=== PATIENT | male | born 1960 | race Caucasian/White ===

== ENCOUNTER 2020-07-06 09:22 | Outpatient (CLI) | payer BC, SELFPAY ==
--- NOTE | ~2020-07-06 | CT_ITS ---
EXAMINATION: CT soft tissue neck w con EXAM DATE: 07/06/2020 10:07 INDICATION: R22.1 - Localized swelling, mass and lump, neck. TECHNIQUE: Spiral CT of the neck was performed following intravenous injection of 75 mL Omnipaque 350 . Axial, coronal and sagittal images were reviewed. The dose-length product (DLP) for this examinat ion was 521.35 mGy-cm. The exposure was tailored according to patient size (auto mA exposure control ), and iterative reconstruction (ASIR) was used as additional dose reduction technique. There is no prior study for comparison. FINDINGS: There is a externally placed marker overlying the right posterior cervical triangle. Deep t o this are scattered small lymph nodes which are likely reactive, largest measuring about 4 x 6 mm. T here are no pathologically enlarged cervical lymph nodes. There is a posterior midline sebaceous cyst at the C2 level. The thyroid gland is unremarkable. The submandibular and parotid glands are symmetric. The superi or mediastinum is unremarkable. The airway is unremarkable. Parapharyngeal and pre-glottic fat pl anes are preserved. The opacified vasculature is patent. Mild bilateral carotid arterial sclerosis without stenosis. Small right mastoid effusion, evidence of mild to moderate bilateral ethmoid and l eft maxillary sinus mucoperiosteal thickening. Some fluid in the left maxillary sinus. Lung apices ar e clear. Moderate to severe right neural foraminal stenosis at C2-3 and C4-5. IMPRESSION: 1. Small cervical lymph nodes. No suspicious findings. 2. Mild to moderate sinus mucoperiosteal opacity. Reviewed, dictated and finalized at location B. EROLE PREPARER
[2020-07-06 10:00] LABS: Estimated Glomerular Filt Rate > 60
== END 2020-07-06 09:23 | disposition home or self-care (01) ==
PROVIDERS: PCP Internal Medicine; Visit Provider Otolaryngology
DX: R22.1 Localized swelling, mass and lump, neck (principal); J39.2 Other diseases of pharynx
CPT/HCPCS: 70491; Q9967

== ENCOUNTER 2021-07-25 00:31 | Day surgery (SDC) | payer BC, SELFPAY ==
[2021-07-14 12:44] VITALS: BMI 26.8
--- NOTE | 2021-07-22 13:16 | PM.HPGS ---
History of Present Illness History of Present Illness Consent: Risks, benefits, and alternatives have been discussed and questions answered. Patient agrees to proceed with procedure. Chief complaint: hx of colon polyps Narrative: Malik Villarreal is a 61 year old male referred for colon cancer screening. He has a family history of colon cancer and has had polyps removed in the past Review of Systems Review of Systems: All systems reviewed & are unremarkable except as noted in HPI and below PMFSH Past Medical History Medical History CAD (coronary artery disease) Myocardial infarct Surgical History Surgical History History of colon resection Social History Social History Smoking status: Current every day smoker Tobacco type: cigarettes Second hand tobacco smoke exposure: No Alcohol intake: never Substance use: never Substance use type: does not use Living arrangements: alone Spiritual care concerns: No Meds Home Medications and Allergies Home Medications Medication Instructions Recorded Confirmed Type aspirin 81 mg tablet,delayed 81 mg PO DAILY 06/23/20 07/14/21 History release atorvastatin 80 mg tablet 80 mg PO DAILY 06/23/20 07/14/21 History ezetimibe 10 mg tablet 10 mg PO DAILY 06/23/20 07/14/21 History hydrocodone 7.5 mg-acetaminophen 1 tablet PO Q8H PRN 06/23/20 07/14/21 History 325 mg tablet metoprolol succinate 25 mg 25 mg PO DAILY 06/23/20 07/14/21 History tablet,extended release 24 hr Allergies Allergy/AdvReac Type Severity Reaction Status Date / Time No Known Allergies Allergy Mild Verified 07/25/21 09:09 Exam Resp: Auscultation: clear to auscultation bilaterally Cardio: Rate: regular rate Rhythm: regular rhythm GI: GI Palp: Yes Soft to palpation and No Tenderness to palpation present (GI) Assessment and Plan Assessment and plan (1) Colon cancer screening: Code(s): Z12.11 - Encounter for screening for malignant neoplasm of colon Status: Acute Assessment and Plan: Colonoscopy with possible biopsy or polypectomy or cautery or injection of substances.
[2021-07-25 09:11] VITALS: PULSE 107; RESP 18; TEMP 37.1; O2SAT 99
[2021-07-25] MEDS: LACTATED RINGERS 1,000 ML 150 ML IV CONT (09:25)
--- NOTE | 2021-07-25 09:27 | P.PNAN_ITS ---
Anes - Initial Pre Proc Eval Procedure: Operation Date: 07/25/21 10:30 Proposed Procedures p Screening Colonoscopy - Stephen Salas MD Date/Time: 07/25/21 09:27 Surgeon: Stephen Salas MD Pre Op Diagnosis: hx of colon polyps Patient Data Age: 61 Gender: M Height: 1.93 m Weight: 100.6 kg Last Vital Signs Temp 37.1 C 07/25/21 09:11 Pulse 107 H 07/25/21 09:11 Resp 18 07/25/21 09:11 Pulse Ox 99 07/25/21 09:11 Allergies Allergy/AdvReac Type Severity Reaction Status Date / Time No Known Allergies Allergy Mild Verified 07/25/21 09:09 Home Medications Medication Instructions Recorded Confirmed Type aspirin 81 mg tablet,delayed 81 mg PO DAILY 06/23/20 07/14/21 History release atorvastatin 80 mg tablet 80 mg PO DAILY 06/23/20 07/14/21 History ezetimibe 10 mg tablet 10 mg PO DAILY 06/23/20 07/14/21 History hydrocodone 7.5 mg-acetaminophen 1 tablet PO Q8H PRN 06/23/20 07/14/21 History 325 mg tablet metoprolol succinate 25 mg 25 mg PO DAILY 06/23/20 07/14/21 History tablet,extended release 24 hr Patient hx anesthesia problems: none Family hx anesthesia problems: none Results Review: All pre-operative results and documents have been reviewed as part of the pre-operative evaluation. [facility] Past Medical History Medical History (Updated 07/25/21 @ 09:28 by Vinicius Ruffin MD) CAD (coronary artery disease) Myocardial infarct Surgical History Surgical History (Updated 07/25/21 @ 09:28 by Vinicius Ruffin MD) History of colon resection Social History Social History Smoking status: Current every day smoker Tobacco type: cigarettes Second hand tobacco smoke exposure: No Alcohol intake: never Substance use: never Substance use type: does not use Living arrangements: alone Spiritual care concerns: No Anes - Eval Final PreProcedure Day of Procedure 07/25/21 09:27 Patient weight: overweight Heart: regular rate and rhythm Lungs: clear to auscultation Airway: Mallampati scale class II Neurological: alert and oriented Last oral intake: >/= 8 hours ASA classification: III Emergent: no Anesthetic plan: proceed Anesthesia type and monitoring: general GIVS and standard monitoring Results Review: All pre-operative results and documents have been reviewed as part of the pre-operative evaluation. Informed Consent: The patient's anesthetic plan and its attendant risks and benefits were discussed with the patient/family/POA. Questions were solicited and answers provided to the satisfaction of the patient/family/POA.
[2021-07-25] MEDS: SIMETHICONE ORAL SUSPENSION 20 MG/0.3 ML 30 ML BOTTLE 0.6 ML IRRIGATION (10:03)
[2021-07-25 10:12] VITALS: BP 106/76; PULSE 96; RESP 22; O2SAT 96
[2021-07-25 10:22] VITALS: BP 140/122; PULSE 89; RESP 22; O2SAT 98
[2021-07-25 10:32] VITALS: BP 145/89; PULSE 79; RESP 17; O2SAT 98
== END 2021-07-25 10:44 | disposition home or self-care (01) ==
PROVIDERS: PCP Internal Medicine; Visit Provider Internal Medicine Gastroenterology
PROC: 0DJD8ZZ Inspection of Lower Intestinal Tract, Via Natural or Artificial Opening Endoscopic (ICD-10-PCS; CPT 45378; principal; 2021-07-25 10:30)
DX: Z12.11 Encounter for screening for malignant neoplasm of colon (principal); K63.5 Polyp of colon; Z98.0 Intestinal bypass and anastomosis status; I25.10 Atherosclerotic heart disease of native coronary artery without angina pectoris; I25.2 Old myocardial infarction; F17.210 Nicotine dependence, cigarettes, uncomplicated
CPT/HCPCS: 45385; 88305; J2704; J7120

== ENCOUNTER → 2022-12-28 13:32 | Outpatient (CLI) | payer OTHER, SELFPAY ==
--- NOTE | ~2022-12-28 | CT_ITS ---
EXAMINATION:CT lung screening DATE: 12/28/2022 13:44 INDICATION: Personal history of tobacco dependence. Current smoker with 20 pack year history. TECHNIQUE: Computed tomography (CT) of the chest was performed without intravenous contrast. Automate d exposure control and iterative reconstruction technique were employed. The dose-length product (DLP ) was 186.28 mGy-cm. COMPARISON: Neck CT 07/06/2020 FINDINGS: There is mild emphysema. Calcified bilateral lung nodules and calcified right hilar lymph n odes are consistent with old granulomatous disease. There is a 6 mm nodule in left lower lobe. No ple ural effusion. There is mild mediastinal lymphadenopathy, likely reactive. The heart size is normal. There are coronary artery calcifications. No pericardial effusion. Calcifications in the spleen are c onsistent with old granulomatous disease. There are changes of cholecystectomy. There is mild thoraci c spondylosis. There is mild chronic anterior wedging of multiple thoracic vertebral bodies. IMPRESSION: 1. Lung-RADS category 3: Probably benign. Further evaluation is recommended with noncontrast low-dose chest CT in 6 months. Reviewed, dictated and finalized at location A. IMPRESSION: 1. Lung-RADS category 3: Probably benign. Further evaluation is recommended wit h noncontrast low-dose chest CT in 6 months.
== END ==
PROVIDERS: PCP Internal Medicine; Visit Provider Internal Medicine
DX: Z12.2 Encounter for screening for malignant neoplasm of respiratory organs (principal); Z87.891 Personal history of nicotine dependence; R91.8 Other nonspecific abnormal finding of lung field
CPT/HCPCS: 71271

== ENCOUNTER 2025-04-07 10:54 | Outpatient (CLI) | payer MEDICARE, SELFPAY ==
--- NOTE | 2025-04-07 10:23 | CY_PTH ---
PATIENT: Malik Villarreal LOC: ANHLAB #:[id number] AGE/SX: 64/M ROOM: RE04/07/[address]: Graham Kimball MD : 1960 BED: DIS: 04/07/2025 SPEC #: [id number] RECD: 04/07/25 11:47 STATUS: SOUMaggy REQ #: [id number] MOISÉS: 04/07/25 10:[address]: Graham Kimball DEPT: [facility] Cytology RECD BY: Nakita Lopez ENTERED: 04/07/25 11:49 SP TYPE: Cytology OT DR: Shaheen Denney, Tissues: A - Flow Procedures: Flow Cytometry
--- OUTSIDE RECORDS SUMMARY | 2025-04-07 10:30 | XMS_ITS | Encounter Summary ---
Author Organization [facility] Address [address] [place] [address] Care Team Providers Care Plant Cytologist Name Role Phone Shaheen Denney MD Primary Care Provider [phone] Reason for Referral * Laboratory Services (Routine) - Open Specialty Diagnoses / Procedures Referred By Contac t Referred To Contact Diagnoses Leukocytosis, unspecified type Procedures BCR/ABL1, QUANTITATIVE W/REFLEX Graham Kimball MD [address] [place] [id number] Phone: tel: fax: Referral ID Status Reason Start Date Expiration Date Visits Re quested Visits Authorized [id number] Open 04/07/2025 2026 1 1 Reason for Visit * Reason Comments Establish Care Encounter Details Date Type Department Care Team (Late st Contact Info) Description 04/07/2025 10:30 AM CDT Office Visit [facility] Oncology and Hematology - [place] [facility] [address] [place] [address] Graham Kimball MD [address] [place] [address] Leukocytosis, unspecified type (Primary Dx) Social History Tobacco Use Types Packs/Day Years Used Date Smoking Tobacco: Every Day Cigarettes 1.5 45 Started: 04/07/1980 Smokeless Tobacco: Never Alcohol Use Standard Drinks/Week Comments Not Currently 0 (1 standard drink = 0.6 oz pur e alcohol) Sex and Gender Information Value Date Recorded Sex Assigned at Not on file Legal Sex Male 4:02 PM CDT Gender Identity Not on file Sexual Orientation Not on file documented as of this encounter Last Filed Vital Signs Vital Sign Reading Time Taken Comments Blood Pressure 154/99 04/07/2025 10:14 AM CDT Pulse 107 04/07/2025 10:11 AM CDT Temperature 37.6 C (99.7 F) 04/07/2025 10:11 AM CDT Respiratory Rate 15 04/07/2025 10:1 1 AM CDT Oxygen Saturation 93% 04/07/2025 10: 11 AM CDT Inhaled Oxygen Concentration - - Weight 101.1 kg (222 lb 12.8 oz) 2024 10:11 AM CDT Height 193 cm (6' 4) 04/07/2025 10:11 AM CDT Body Mass Index 27.12 04/07/2025 10:11 AM CDT documented in this encounter Progress Notes * Graham Kimball MD - 04/07/2025 10:14 AM CDT Hematology-oncology consult Note Requesting Physician Shaheen Denney MD Primary Care Physician Shaheen Denney MD Problem list There is no problem list on file for this patient. Previous TREATMENT ? Measurable Disease ? Reason for Visit Malik Villarreal is a 64 y.o. male who was referred for consultation for leukocytosis. History of present illness This is a pleasant 64-year-old male with history of hyperlipidemia and smoking 1-1/2 pack/day for 45 years duration was been dealing with the lower back pain, knee pain, elbow pain and right shoulder pain. Patient was diagnosed with spinal stenosis and has been getting [place] for pain control. He denies any night sweats fevers chills and weight loss. Denies any new lumps bumps and lymphadenopathy. Patient informed me that for last 1 year his white blood cell has been slowly going up. His labs from October 31 showed WBC count of 16.6. He denies any other complaints. Past Medical History Past Medical History: Diagnosis Date Heart disease Hyperlipidemia Spinal stenosis and degenerative disc disease Surgical History Past Surgical History: Procedure Laterality Date HX CHOLECYSTECTOMY HX COLECTOMY Medications Current Outpatient Medications Medication Sig Dispense Refill atorvastatin (LIPITOR) 80 mg tablet Take 80 mg by mouth daily. HYDROcodone-acetaminophen (NORCO) 7.5-325 mg Tablet Take 1 Tablet by mouth 3 times daily. aspirin (ECOTRIN EC) 81 mg Tablet, Delayed Release (E.C.) Take 81 mg by mouth daily. No current facility-administered medications for this visit. Allergies No Known Allergies Immunizations: There is no immunization history on file for this patient. Family History Family History Problem Relation Name Age of Onset Heart Disease Father Diabetes Father Liver Cancer Mother Cancer - Other Sister No Known Problems Child No Known Problems Child Social History Social History Tobacco Use Smoking status: Every Day Current packs/day: 1.50 Average packs/day: 1.5 packs/day for 45.0 years (67.5 ttl pk-yrs) Types: Cigarettes Start date: 04/07/1980 Smokeless tobacco: Never Substance Use Topics Alcohol use: Not Currently Review of Systems Constitutional: Patient did not mention fever; no night sweats; no anorexia; no weight loss; no fatique NEENT: Patient did not mention headache; no change in vision; no change in hearing; no sore throat;no dysphagia Respiratory: Patient did not mention shortness of breath; no pleuritic chest pain; no cough; no hemoptysis Cardiac: Patient did not mention cardiac-like chest pain; no palpitations; no orthopnea; no PND; noDOE GI: Patient did not mention abdominal pain; no nausea; no vomiting; no diarrhea; no hematochezia; no melena : Patient did not mention dysuria; no frequency; no hesitancy; no hematuria SALES SUPPORT CONSULTANT: Musculosketetal: Complain of lower back pain, knee pain, elbow pain and right shoulder pain Skin: Patient did not mention pruritis; no rash; no petechiae; no ecchymoses Endocrine: Patient did not mention polydipsia; no polyuria; no unusual weight gain Neuro: Patient did not mention headache; no change in vision; no sensory changes; no muscle weakness; no confusion; no seizures Psych: Patient did not mention anxiety; no depression; Physical Exam Vitals: As per nursing note Constitutional: Well developed, well nourished, no acute distress, non-toxic appearance Teeth and gum. No signs of infection or swelling. Eyes: PERRL, conjunctiva normal HEENT: Atraumatic, external ears normal, nose normal, oropharynx moist, no pharyngeal exudates. no sinus tenderness Neck- normal range of motion, no tenderness, supple Respiratory: No respiratory distress, normal breath sounds, no rales, no wheezing Cardiovascular: Normal rate, normal rhythm, no murmurs, no gallops, no rubs GI: Soft, nondistended, normal bowel sounds, nontender, no splenomegaly, no hepatomegaly, no mass, no rebound, no guarding : No costovertebral angle tenderness Musculoskeletal: No edema, no tenderness, no deformities. Back- no tenderness Integument: Well hydrated, no rash, Digits and nails inspection normal Lymphatic: No lymphadenopathy noted Neurologic: Alert & oriented x 3, CN 2-12 normal, normal motor function, normal sensory function, no focal deficits noted Psychiatric: Speech and behavior appropriate ? labs No results found for this or any previous visit (from the past 24 hours). Labs from October 31, 2024 showed WBC 16.6 hemoglobin 16.3 MCV 93.4 platelet 393,000 neutrophils 62% lymphocyte 29% Pathology ? Imaging & Other Studies Performance Status? Assessment / Plan: ? Leukocytosis. Patient is a pleasant 64-year-old male with history of hyperlipidemia and smoking 1-1/2 pack/day for more than 45 years duration referred to me for leukocytosis which is getting worse for the last 1 year duration. He has been complaining of musculoskeletal discomfort including lower back pain, knee pain, elbow pain and right shoulder pain. He is taking [place] for the back pain which he attributed to the degenerative disc disease and spinal stenosis. On my examination there is no evidence of lymphadenopathy and hepatosplenomegaly. He denies any B symptoms including nightsweats fever chills and weight loss. I informed him that most likely he has leukocytosis is reactive secondary to musculoskeletal discomfort and smoking. We will order the workup that will include CBC with differential, CMP, C-reactive protein, sedimentation rate, flow cytometric analysis for leukemia and BCR-ABL translocation. I will discuss findings with the patient next couple of weeks. I haveanswered all the questions to patient satisfaction. Hyperlipidemia. Patient is on Lipitor. Smoking cessation. I recommended smoking cessation. He had last CT scan chest for the lung cancer screening 2 years ago and was unremarkable. He will continue to follow with the primary care physician for further management. Thank you very much for allowing me to participate in Malik Villarreal's evaluation and management. Please feel free to contact if I can be of any further assistance in your patient???s care requiring hematology or oncology evaluation. Sincerely, ? ? Graham Kimball M.D. cell TOBACCO COUNSELING He was counseled to discontinue tobacco/nicotine use. Graham Kimball MD ,04/07/2025 10:41 AM ? Total time spent 60 minutes, two third of the total time spent counseling patient [id number]. CC:?Shaheen Denney MD documented in this encounter Plan of Treatment Upcoming Encounters Date Type Department Care Team (Late st Contact Info) Description 04/21/2025 4:30 PM CDT Telephone Check Up [facility] Oncology and Hematology - [place] [address] [facility] [address] [place] [address] Graham Kimball MD [address] [facility] [address] [place] [address] Scheduled Orders Name Type Priority Associated Diagnoses Orde r Schedule CBC WITH DIFFERENTIAL Lab Stat Leukocytosis, unspecified type Expected: 04/07/2025, Expires: 04/07/2026 COMPREHENSIVE METABOLIC PANEL Lab Stat Leukocytosis, unspecified type Expected: 04/07/2025, Expires: 04/07/2026 C-REACTIVE PROTEIN Lab Routine Leukocytosis, unspecified type Expected: 04/07/2025, Expires: 04/07/2026 FLOW CYTOMETRY PANEL Lab Routine Leukocytosis, unspecified type Expected: 04/07/2025, Expires: 04/07/2026 SEDIMENTATION RATE Lab Routine Leukocytosis, unspecified type Expected: 04/07/2025, Expires: 04/07/2026 BCR/ABL1, QUANTITATIVE W/REFLEX Lab Routine Leukocytosis, unspecified type Expected: 04/07/2025, Expires: 04/07/2026 documented as of this encounter Visit Diagnoses Diagnosis Leukocytosis, unspecified type- Primary documented in this encounter Care Teams Plant Cytologist Relationship Specialty Start Date End Date Shaheen Denney MD [address] [facility] [address] [place] [address] PCP - General Internal Medicine 12/03/24 documented as of this encounter
[2025-04-07 11:17] LABS: Hematocrit 45.5 % (42.0-52.0); Hemoglobin 15.4 g/dL (14.0-18.0); Immature Granulocyte Percent A 0.5 % (0-0.5); Lymphocytes Absolute Auto 3.95 K/mm3 (0.9-3.2); Mean Corpuscular HGB Conc 33.8 g/dl (32-36); Mean Corpuscular Hemoglobin 31.0 pg (26-34); Mean Corpuscular Volume 91.7 fl (80-100); Nucleated Red Blood Cells Absolute Auto 0.000 K/mm3 (0.0-0.012); Nucleated Red Blood Cells Perc 0.0 % (0.0-0.2); Platelet Count Result 326 k/mm3 (150-375); Red Blood Count 4.96 M/mm3 (4.6-6.20); White Blood Count 17.6 K/mm3 (4.5-10.0)
[2025-04-07 12:02] LABS: Alanine Aminotransferase 29 U/L (6-50); Albumin Level 4.6 g/dL (3.5-5.1); Alkaline Phosphatase 84 U/L (38-126); Anion Gap 12 mmol/L (4-12); Aspartate Amino Transferase 34 U/L (17-59); Bilirubin,Total 0.6 mg/dL (0.2-1.3); Blood Urea Nitrogen 15 mg/dL (9-20); CRP 1.1 mg/dL (<1.0); Calcium 9.3 mg/dL (8.4-10.2); Carbon Dioxide 21 mmol/L (22-30); Chloride 106 mmol/L (98-107); Estimated Glomerular Filt Rate > 60; Glucose 100 mg/dL (65-110); Potassium 3.9 mmol/L (3.4-5.0); Sodium 139 mmol/L (137-145); Total Protein 8.2 g/dL (6.3-8.2)
--- OUTSIDE RECORDS SUMMARY | 2025-04-07 12:54 | XMS_ITS | Data Portability ---
Author Organization [facility], Main Office Address [address] [place] [address] Assessment No assessment recorded. Plan of Treatment Reminders Order Date Submit Date Provider Last Modified By Organization Details Last Modified Time Details Appointments None recorded. Lab HbA1c (hemoglobin A1c), blood 2024 025 [employer] [facility], [address], [address], [place], [address], 5 20:52:42 CBC w/ auto diff 2024 025 [employer] [facility], [address], [place], [address], 5 20:52:39 CMP, serum or plasma 2024 025 [employer] [facility], [address], [place], [address], 5 20:52:37 lipid panel, serum 2024 025 [employer] [facility], [address], [place], [address], 5 20:52:36 TSH, serum or plasma 2024 025 [employer] [facility], [address], [place], [address], 5 20:52:41 T4, free, serum 2024 025 [employer] [facility], [address], [place], [address], 5 20:52:40 drug screen, urine 2024 025 [facility], [address], [address], [place], [address], 5 20:52:43 lipid panel, serum 2023 024 [email or web address] [facility], [address], [place], [place], [address], 4 10:03:29 CMP, serum or plasma 2023 024 [email or web address] [facility], [address], [place], [place], [address], 4 10:03:30 TSH, serum or plasma 2023 024 [id number] [facility], [address], [place], [place], [address], 4 10:03:30 T4, free, serum 2023 024 [email or web address] [facility], [address], [address] [place], [place], [address], 4 10:03:30 CBC w/ auto diff 2023 024 [email or web address] [facility], [address], [address], [place], [address], 4 10:03:30 CMP, serum or plasma 2023 024 [facility], [address], [address], 4 15:09:40 lipid panel, serum 2023 024 [facility], [address], [address], 4 15:09:39 TSH, serum or plasma 2023 024 [facility], [address], [address], 4 15:09:42 T4, free, serum 2023 024 [facility], [address] [facility] [address], [place], [address], 4 15:09:41 PSA, serum or plasma 2023 024 [facility], [address], [address], 4 15:09:42 CBC w/ auto diff 2023 024 [facility], [address], [address], 4 15:09:41 CMP, serum or plasma 2022 023 [employer] [facility], [address], [address], 3 16:46:45 lipid panel, serum 2022 023 [employer] [facility], [address], [address], 3 16:46:45 CBC w/ auto diff 2022 023 [employer] [facility], [address], [address], 3 16:46:45 PSA, serum or plasma 2022 023 [employer] [facility], [address], [address], 3 04:26:25 CMP, serum or plasma 2022 023 [facility] [facility], [address], [address], 3 04:26:22 CBC w/ auto diff 2022 023 [facility] [facility], [address] [address], [place], [address], 3 04:26:22 lipid panel, serum 2022 023 [employer] [facility], [address], [address], 3 04:26:20 T4, free, serum 2022 023 [employer] [facility], [address], [address], 3 04:26:23 TSH, serum or plasma 2022 023 [employer] [facility], [address], [address], 3 04:26:24 drug screen, urine 2022 023 [employer] [facility], [address], [place], [address], 3 20:57:19 Referral None recorded. Procedures None recorded. Surgeries None recorded. Imaging electrocard iogram 2023 024 [email or web address] [facility], [facility] , [place], [address], 4 10:51:33 Medication Orders None recorded. Patient Targets Encounter Date Encounter Id Patient Goals Patient Target Last Modified By Organization Details Last Modified Time 05/27/2024 [id number] Coronary artery disease, essential hypertension, hyperlipidemia, chronic pain syndrome clinically stable. Check blood work consisting of CBC, CMP, lipid, thyroid and low-dose CT scan of the chest. Otherwise has been doing fine. Will continue with current Rx and follow-up in six months Additional Orders - Directives - Recommendations 1. LDCT Follow Up: 6 Months Approximate Date: 11/23/2024 Portions of the record may have been created with voice recognition software. Occasional wrong-word or s ound-a-like substitutions may have occurred due to the inherent limitations of voice recognition software. Read the chart carefully and recognize, using context, where substitutions have occurred. Created: Ben Denney M.D. 05.27.2024 03:28 PM [email or web address] Not available 05/27/2024 16:28:10 Patient Instructions Encounter Date Encounter Id Patient Instructions Last Modified By Organization Details Last Modified Time 11/21/2022 [id number] risk assessment* [email or web address] Not availabl e 11/21/2022 14:49:26 INFLUENZA VACCIN E Patient will get at local pharmacy/health department TD/TDAP Patient will get at local pharmacy/health department PNEUMONIA VACCINE Recommended at age 65 SHINGLES Patient will get at local pharmacy/health department PSA recommended COLORECTAL SCREENING No screening necessary patient is up to date DEPRESSION SCREENING Negative BMI Appropriate NUTRITION Heart Healthy Diet PHYSICAL ACTIVITY Need more exercise/physical activity ALCOHOL USE No alcohol use TOBACCO USE current tobacco use If 50 or above, recommend lung cancer screening with low dose CT scan of the chest LUNG CANCER SCREENING Recommendation for Lung Cancer Screening with LDCT SEXUALLY ACTIVE HEPATITIS C SCREENING Not indicated GLUCOSE SCREENING recommended LIPID SCREENING recommended Not available 11/21/2022 14:37:56 Wellness evaluat ion risk assessment stable. Follow-up for coronary artery disease, hypertension, hyperlipidemia and chronic pain syndrome. Will check blood work consisting of CBC, CMP, lipid, thyroid, PSA. Need a low-dose CT scan of the chest. Follow-up in six months Low-dose CT scan of chest Not available 11/21/2022 14:49:08 05/22/2023 [id number] Follow-up deal ry artery disease -hypertension-hyper lipidemia. Clinically stable. He did have a markedly elevated cholesterol last visit of over 300. Apparently at stop taking his atorvastatin. Has restarted this back up. No interval complaints of any change in frequency, duration or intensity of any type of anginal symptomatology. No history of any type of shortness of breath orthopnea PND or any other cardiopulmonary symptoms. Will recheck lipid and CMP panel. Continue on current Rx follow-up in six months.Standard immunizations of RSV, COVID, influenza and shingles as recommended. Portions of the record may have been created with voice recognition software. Occasional wrong-word or s ound-a-like substitutions may have occurred due to the inherent limitations of voice recognition software. Read the chart carefully and recognize, using context, where substitutions have occurred. [email or web address] Not available 05/22/2023 14:38:32 11/27/2023 [id number] dementia rating scale-2* [email or web address] Not available 11/27/2023 17:13:49 alcohol misuse* Not available 11/27/2023 17:13:50 depression screening* [email or web address] Not available 11/27/2023 17:13:50 multi-dimensiona l health assessment questionnaire* Not available 11/27/2023 17:13:50 Personalized Hea lt Plan and Screening Recommendations Advance Directives - Do you have one? No Advance Directives - Do we have your advance directive on file in your health record? Primary Prevention/Interven tion (prevents or decreases the chance of common diseases from occurring) Smoking Risk: Smoker Continue to consider stopping smoking and call if we can assist you Alcohol Misuse Screening: Negative Weight: Appropriate Physical activity: Need more exercise/physical activity Nutrition: Average Eat heart healthy diet Fall Risk (screened today): Low I have no recommendations Vaccines Pneumococcal: Recommended today Influenza: Your next one in the fall of this year Chronic Disease Risks Stroke: Intermediate Risk Active diagnosis, Continue current treatment plan Heart Attack: Intermediate Risk Active diagnosis, Continue current treatment plan Clogging of the Arteries: Intermediate Risk Active diagnosis, Continue current treatment plan Diabetes: Low Risk I have no recommendations Secondary Prevention/Interven tion (detects treatable diseases before they may cause symptoms, disability, or ) Prostate Cancer Screening: recommended Colon Cancer Screening: Colonoscopy due 2026 Date Screening Last Performed: _2021____ Eye Disease Screening: goes every 2-3 yrs Dementia Risk: Low I have no recommendations Depression Screening: Negative I have no recommendations Not available 11/27/2023 16:56:53 Welcome to Medic are visit clinically stable. No new complaints. Follow-up for coronary artery disease, hypertension, hyperlipidemia all clinically stable. Was given a Prevnar 20 shot today. Will need blood work consisting of CBC, CMP, lipid, thyroid and PSA. Will also set up for a ultrasound of the abdominal aorta. Continue on current Rx follow-up in six months. Ultrasound of abdominal aorta for screening for abdominal aortic aneurysm for welcome to Medicare visit. Next Appointment: 6 Months Approximate Date: 05/25/2024 Portions of the record may have been created with voice recognition software. Occasional wrong-word or s ound-a-like substitutions may have occurred due to the inherent limitations of voice recognition software. Read the chart carefully and recognize, using context, where substitutions have occurred. [email or web address] Not available 11/27/2023 17:13:02 10/28/2024 [id number] Follow-up edal ry artery disease, essential hypertension, hyperlipidemia, hyperglycemia and chronic pain syndrome all clinically stable. No interval complaints of any new problems with regards to these. Is clinically stable otherwise. Will check blood work consisting of a CBC, CMP, lipid and thyroid. Directed patient to get these done after December 16 or so where he had testing done approximately one year ago. Has had an elevated white count which is grafted. Etiology which obscure. Will need to consider possible hematological referral. Will continue on current Rx and follow-up in six months Follow Up: 4 Months Approximate Date: 02/25/2025 Portions of record are template driven. When necessary additional context will be provided. Additionally some portions have been created with voice recognition software. Occasional wrong-word or s ound-a-like substitutions may have occurred due to the inherent limitations of voice recognition software. Read the chart carefully and recognize, using context, where substitutions may have occurred. Created: Ben Denney M.D. 10.28.2024 01:54 PM [email or web address] Not available 10/28/2024 14:54:22 Reason for Referral None Reported. Results Created Date Observation Date Name Description Value Unit Range Abnormal Flag Note LastModifiedBy Organization Detail LastModifiedTime 11/25/19 23 11/25/2022 DRUG MONIT OR, BASE PANEL , SCREE N, URINE benzodiazepi kirill NEGATI VE NG/mL <100 See Note A See Note A Not Available [address], [place], [address], 11/25/2022 20:57:11/25/1911/25/2022 DRUG MONIT OR, BASE PANEL , SCREE N, URINE cocaine metabolite NEGATI VE NG/mL <150 See Note A See Note A Not Available [address], [place], [address], 11/25/2022 20:57:11/25/1911/25/2022 DRUG MONIT OR, BASE PANEL , SCREE N, URINE opiates POSITI VE NG/mL <100 abnormal See Note A See Note A Not Available [address], [place], [address], 11/25/2022 20:57:11/25/19 23 11/25/2022 DRUG MONIT OR, BASE PANEL , SCREE N, URINE oxycodone NEGATI VE NG/mL <100 See Note A See Note A Not Available [address], [place], [address], 11/25/2022 20:57:11/25/1911/25/2022 DRUG MONIT OR, BASE PANEL , SCREE N, URINE creatinine 12.4 mg/dL > or = 20.0 low Not Available [address], [place], [address], 11/25/2022 20:57:11/25/1911/25/2022 DRUG MONIT OR, BASE PANEL , SCREE N, URINE specific gravity 1.005 > or = 1.003 Not Available [address], [place], [address], 11/25/2022 20:57:11/25/1911/25/2022 DRUG MONIT OR, BASE PANEL , SCREE N, URINE pH 6.3 4.5-9. 0 Not Available [address], [place], [address], 11/25/2022 20:57:19 11/25/19 23 11/25/2022 DRUG MONIT OR, BASE PANEL , SCREE N, URINE oxidant NEGATI VE mcg/m L <200 Not Available [address] , [place], [address], 11/25/2022 20:57:19 11/25/19 23 11/25/2022 DRUG MONIT ORING TEMPL ATE notes and comments This drug testi ng is for medic al treat ment only. Shahla sis was perfo rmed as non-f orens ic testi ng and these resul ts shoul d be used only by [facility] provi ders to rende r diagn osis or treat ment, or to monit or progr ess of medic al condi tions . Note A: The resul ts are presu mptiv e; based only on lilibeth orona ds, and they have not been confi rmed by a defin itive metho d. [facility] Pro[facility] ders needi ng Inter preta tion delbert tance , pleas e conta ct us at 1.877 .40.R XTOX (1.87 [phone] ) M-F, 8am to 10pm EST Not Available [address] , [place], [address], 11/25/2022 20:57:20 11/28/19 23 11/28/2022 LIPID PANEL , STAND SUNSHINE cholesterol, total 330 mg/dL <200 high Not Available [facility] [address], [place], [address], 11/28/2022 04:26:20 11/28/19 23 11/28/2022 LIPID PANEL , STAND SUNSHINE HDL cholesterol 38 mg/dL > or = 40 low Not Available [facility] [address] [address] [place], [address], 11/28/2022 04:26:20 11/28/19 23 11/28/2022 LIPID PANEL , STAND SUNSHINE triglyceride s 494 mg/dL <150 high If a non-f astin g speci men was colle cted, consi edgar repea t trigl yceri de testi ng on a fasti ng speci men if clini vale indic ated. Ramses walker et al. J. of Clin. Lipid ol. 2015; 9:129 -169. Not Available [employer] [address], [address], 11/28/2022 04:26:20 11/28/19 23 11/28/2022 LIPID PANEL , STAND SUNSHINE LDL-choleste rol mg/dL _(ara c) LDL lian stero l not calcu lated . Trigl yceri de level s great er than 400 mg/dL inval idate calcu lated LDL resul ts. Refer ence range : <100 Irving able range <100 mg/dL for prima ry preve ntion ; <70 mg/dL for patie nts with CHD or diabe tic patie nts with > or = 2 CHD risk facto rs. LDL-C is now calcu lated using the Francine n-Hop kins calcu latio n, which is a valid ated novel metho d provi ding veronika r accur acy than the Fried camden equat ion in the estim ation of LDL-C . Francine barfield SS et al. CRISTINA. 2013; 310(1 9): 2061- 2068 (http ://ed ucati on.Qu jasnoNONO. com/f aq/FA Q164) Not Available [facility] [address], [address], 11/28/2022 04:26:20 11/28/1911/28/2022 LIPID PANEL , STAND SUNSHINE chol/HDLC ratio 8.7 (calc ) <5.0 high Not Available [facility] [address], [address], 11/28/2022 04:26:20 11/28/19 23 11/28/2022 LIPID PANEL , STAND SUNSHINE non HDL cholesterol 292 mg/dL _(ara c) <130 high Non-H DL level > or = 220 is very high and may indic ate nusrat ic famil ial hyper lian stero lemia (FH). Clini ara asses sment and measu remen t of blood lipid level s shoul d be consi dered for all first -degr ee relat tu of patie nts with an FH diagn osis. For patie nts with diabe [place] plus 1 major ASCVD risk facto r, treat ing to a non-H DL-C goal of <100 mg/dL (LDL- C of <70 mg/dL ) is consi dered a thera peuti c optio n. Not Available [facility] [address] [address] [place], [address], 11/28/2022 04:26:20 11/28/19 23 11/28/2022 COMPR EHENS TONO METAB OLIC PANEL glucose 123 mg/dL 65-99 high Fasti ng refer ence inter indira For someo ne witho ut known diabe [place], a gluco se value betwe en 100 and 125 mg/dL is consi stent with predi abete s and seymour d be confi rmed with a follo w-up test. Not Available [facility] [address] [address] [place], [address], 11/28/2022 04:26:21 11/28/19 23 11/28/2022 COMPR EHENS TONO METAB OLIC PANEL urea nitrogen (BUN) 14 mg/dL 7-25 normal Not Available [facility] [address] [address] [place], [address], 11/28/2022 04:26:21 11/28/19 23 11/28/2022 COMPR EHENS TONO METAB OLIC PANEL creatinine 1.08 mg/dL 0.70-1 .35 normal Not Available [facility] [address] [address] [place], [address], 11/28/2022 04:26:21 11/28/19 23 11/28/2022 COMPR EHENS TONO METAB OLIC PANEL eGFR 77 mL/mi n/1.7 3m2 > or = 60 normal The eGFR is based on the CKD-E PI 2020 equat ion. To calcu late the new eGFR from a previ ous Creat inine or Cysta joaquina giles t, go to https ://tressa hayden.clark williamson/dimitri krause s/ kdoqi /gfr% 5Fcal culat or Not Available [address] [address] [place], [address], 11/28/2022 04:26:21 11/28/19 23 11/28/2022 COMPR EHENS TONO METAB OLIC PANEL BUN/creatini ne ratio NOT APPLIC ABLE (calc ) 6-22 Not Available [address], [address], 11/28/2022 04:26:21 11/28/19 23 11/28/2022 COMPR EHENS TONO METAB OLIC PANEL sodium 141 mmol/ L 135-14 6 normal Not Available [address] [address] [place], [address], 11/28/2022 04:26:21 11/28/19 23 11/28/2022 COMPR EHENS TONO METAB OLIC PANEL potassium 4.9 mmol/ L 3.5-5. 3 normal Not Available [address] [address] [place], [address], 11/28/2022 04:26:21 11/28/19 23 11/28/2022 COMPR EHENS TONO METAB OLIC PANEL chloride 107 mmol/ L 98-110 normal Not Available [facility] [address] [address] [place], [address], 11/28/2022 04:26:21 11/28/19 23 11/28/2022 COMPR EHENS TONO METAB OLIC PANEL carbon dioxide 25 mmol/ L 20-32 normal Not Available [address] [address] [place], [address], 11/28/2022 04:26:21 11/28/19 23 11/28/2022 COMPR EHENS TONO METAB OLIC PANEL calcium 10.4 mg/dL 8.6-10 .3 high Not Available [address], [address], 11/28/2022 04:26:21 11/28/19 23 11/28/2022 COMPR EHENS TONO METAB OLIC PANEL protein, total 7.8 g/dL 6.1-8. 1 normal Not Available [address], [address], 11/28/2022 04:26:21 11/28/19 23 11/28/2022 COMPR EHENS TONO METAB OLIC PANEL albumin 4.7 g/dL 3.6-5. 1 normal Not Available [address], [address], 11/28/2022 04:26:21 11/28/19 23 11/28/2022 COMPR EHENS TONO METAB OLIC PANEL globulin 3.1 g/dL_ (calc ) 1.9-3. 7 normal Not Available [address], [address], 11/28/2022 04:26:21 11/28/19 23 11/28/2022 COMPR EHENS TONO METAB OLIC PANEL albumin/glob ulin ratio 1.5 (calc ) 1.0-2. 5 normal Not Available [address], [address], 11/28/2022 04:26:21 11/28/19 23 11/28/2022 COMPR EHENS TONO METAB OLIC PANEL bilirubin, total 0.4 mg/dL 0.2-1. 2 normal Not Available [address], [address], 11/28/2022 04:26:21 11/28/19 23 11/28/2022 COMPR EHENS TONO METAB OLIC PANEL alkaline phosphatase 81 U/L 35-144 normal Not Available [address], [address], 11/28/2022 04:26:21 11/28/19 23 11/28/2022 COMPR EHENS TONO METAB OLIC PANEL AST 13 U/L 10-35 normal Not Available [address], [address], 11/28/2022 04:26:21 11/28/19 23 11/28/2022 COMPR EHENS TONO METAB OLIC PANEL ALT 11 U/L 9-46 normal Not Available [address], [address], 11/28/2022 04:26:21 11/28/19 23 11/28/2022 CBC (INCL UDES DIFF/ PLT) white blood cell count 12.7 thous and/u L 3.8-10 .8 high Not Available [address], [address], 11/28/2022 04:26:22 11/28/19 23 11/28/2022 CBC (INCL UDES DIFF/ PLT) red blood cell count 5.61 adwoa on/uL 4.20-5 .80 normal Not Available [address], [address], 11/28/2022 04:26:22 11/28/19 23 11/28/2022 CBC (INCL UDES DIFF/ PLT) hemoglobin 17.1 g/dL 13.2-1 7.1 normal Not Available [address], [address], 11/28/2022 04:26:22 11/28/19 23 11/28/2022 CBC (INCL UDES DIFF/ PLT) hematocrit 51.6 % 38.5-5 0.0 high Not Available [address], [address], 11/28/2022 04:26:22 11/28/19 23 11/28/2022 CBC (INCL UDES DIFF/ PLT) MCV 92.0 fL 80.0-1 00.0 normal Not Available [address], [address], 11/28/2022 04:26:22 11/28/19 23 11/28/2022 CBC (INCL UDES DIFF/ PLT) MCH 30.5 pg 27.0-3 3.0 normal Not Available [facility] [address], [address], 11/28/2022 04:26:22 11/28/19 23 11/28/2022 CBC (INCL UDES DIFF/ PLT) MCHC 33.1 g/dL 32.0-3 6.0 normal Not Available [address], [address], 11/28/2022 04:26:22 11/28/19 23 11/28/2022 CBC (INCL UDES DIFF/ PLT) RDW 13.2 % 11.0-1 5.0 normal Not Available [address], [address], 11/28/2022 04:26:22 11/28/19 23 11/28/2022 CBC (INCL UDES DIFF/ PLT) platelet count 406 thous and/u L 140-40 0 high Not Available [address], [address], 11/28/2022 04:26:22 11/28/19 23 11/28/2022 CBC (INCL UDES DIFF/ PLT) MPV 9.2 fL 7.5-12 .5 normal Not Available [address], [address], 11/28/2022 04:26:22 11/28/19 23 11/28/2022 CBC (INCL UDES DIFF/ PLT) absolute neutrophils 8420 cells /uL 1500-7 800 high Not Available [address], [address], 11/28/2022 04:26:22 11/28/19 23 11/28/2022 CBC (INCL UDES DIFF/ PLT) absolute lymphocytes 3353 cells /uL 850-39 00 normal Not Available [facility] [address], [address], 11/28/2022 04:26:22 11/28/19 23 11/28/2022 CBC (INCL UDES DIFF/ PLT) absolute monocytes 737 cells /uL 200-95 0 normal Not Available [facility] [address], [address], 11/28/2022 04:26:22 11/28/19 23 11/28/2022 CBC (INCL UDES DIFF/ PLT) absolute eosinophils 165 cells /uL 15-500 normal Not Available [address], [address], 11/28/2022 04:26:22 11/28/19 23 11/28/2022 CBC (INCL UDES DIFF/ PLT) absolute basophils 25 cells /uL 0-200 normal Not Available [facility] [address], [address], 11/28/2022 04:26:22 11/28/19 23 11/28/2022 CBC (INCL UDES DIFF/ PLT) neutrophils 66.3 % normal Not Available [facility] [address], [address], 11/28/2022 04:26:22 11/28/19 23 11/28/2022 CBC (INCL UDES DIFF/ PLT) lymphocytes 26.4 % normal Not Available [facility] [address], [address], 11/28/2022 04:26:22 11/28/19 23 11/28/2022 CBC (INCL UDES DIFF/ PLT) monocytes 5.8 % normal Not Available [address], [address], 11/28/2022 04:26:22 11/28/19 23 11/28/2022 CBC (INCL UDES DIFF/ PLT) eosinophils 1.3 % normal Not Available [address], [address], 11/28/2022 04:26:22 11/28/19 23 11/28/2022 CBC (INCL UDES DIFF/ PLT) basophils 0.2 % normal Not Available [address], [address], 11/28/2022 04:26:22 11/28/19 23 11/28/2022 T4, FREE T4, free 1.2 NG/dL 0.8-1. 8 normal Not Available [address], [address], 11/28/2022 04:26:23 11/28/19 23 11/28/2022 TSH TSH 0.48 mIU/L 0.40-4 .50 normal Not Available [address], [address], 11/28/2022 04:26:24 11/28/1911/28/2022 PSA, TOTAL PSA, total 0.30 NG/mL < or = 4.00 normal The total PSA value from this assay syste m is stand ardiz ed again st the WHO stand sunshine. The test resul t will be appro ximat brandon 20% lower when pritesh red to the equim olar- stand ardiz ed total PSA (Salazar man Coult er). Pritesh rison of seria l PSA resul ts shoul d be inter prete d with this fact in mind. This test was perfo rmed using the [employer] ns chemi lumin escen t metho d. Value s obtai bridget from diffe rent assay metho ds canno t be used inter pena eably . PSA level s, regar dless of value , shoul d not be inter prete d as absol [place] evide nce of the prese nce or absen ce of disea se. Not Available [facility] [address] [address] [place], [address], 11/28/2022 04:26:25 01/11/20 23 01/11/2023 HEMOG LOBIN A1C hemoglobin A1C 5.2 %_of_ total _HGB <5.7 normal For the purpo se of scree jie for the prese nce of diabe [place]: <5.7% Consi stent with the absen ce of diabe [place] 5.7-6 .4% Consi stent with incre ased risk for diabe [place] (pred iabet es) > or =6.5% Consi stent with diabe [place] This assay resul t is consi stent with a decre ased risk of diabe [place]. Curre ntly, no conse nsus exist s giovanna thomas use of hemog lobin A1c for diagn osis of diabe [place] in child juaquin. Accor ding to Ameri can Di[place] Assoc iatio n (ADA) guide lines , hemog lobin A1c <7.0% repre sents optim al contr ol in non-p regna nt diabe tic patie nts. Diffe rent metri cs may apply to speci fic patie nt popul ation s. Stand ards of Medic al Care in Diabe [place](A DA). Not Available [facility] [address] , [place], [address], 01/11/2023 01:44:46 12/19/19 24 12/21/2023 LIPID PANEL WITH REFLE X TO DIREC T LDL cholesterol, total 144 mg/dL <200 normal Not Available [facility] [address] [place], [address], 12/21/2023 15:09:39 12/19/19 24 12/21/2023 LIPID PANEL WITH REFLE X TO DIREC T LDL HDL cholesterol 34 mg/dL > or = 40 low Not Available [facility] [address] [place], [address], 12/21/2023 15:09:39 12/19/19 24 12/21/2023 LIPID PANEL WITH REFLE X TO DIREC T LDL triglyceride s 261 mg/dL <150 high If a non-f astin g speci men was colle cted, consi edgar repea t trigl yceri de testi ng on a fasti ng speci men if clini vale indic ated. Ramses walker et al. J. of Clin. Lipid ol. 2015; 9:129 -169. Not Available [facility] [id number] [place], [place] [address], [address], 12/21/2023 15:09:39 12/19/19 24 12/21/2023 LIPID PANEL WITH REFLE X TO DIREC T LDL LDL-choleste rol 76 mg/dL _(ara c) normal Refer ence range : <100 Irving able range <100 mg/dL for prima ry preve ntion ; <70 mg/dL for patie nts with CHD or diabe tic patie nts with > or = 2 CHD risk facto rs. LDL-C is now calcu lated using the Francine n-Hop kins calcu latamos n, which is a valid ated novel metho d provi ding veronika r accur acy than the Fried camden equat ion in the estim ation of LDL-C . Francine barfield SS et al. CRISTINA. 2013; 310(1 9): 2061- 2068 (http ://ed ucati on.Qu Estrellita Alt12 Apps. com/f aq/FA Q164) Not Available [facility] [address] [place], [address], 12/21/2023 15:09:39 12/19/19 24 12/21/2023 LIPID PANEL WITH REFLE X TO DIREC T LDL chol/HDLC ratio 4.2 (calc ) <5.0 normal Not Available [facility] [address] [place], [address], 12/21/2023 15:09:39 12/19/19 24 12/21/2023 LIPID PANEL WITH REFLE X TO DIREC T LDL non HDL cholesterol 110 mg/dL _(ara c) <130 normal For patie nts with diabe [place] plus 1 major ASCVD risk facto r, treat ing to a non-H DL-C goal of <100 mg/dL (LDL- C of <70 mg/dL ) is consi dered a thera peuti c optio n. Not Available [address] [place], [address], 12/21/2023 15:09:39 12/19/19 24 12/21/2023 COMPR EHENS TONO METAB OLIC PANEL glucose 92 mg/dL 65-99 normal Fasti ng refer ence inter indira Not Available [address], [address], 12/21/2023 15:09:40 12/19/19 24 12/21/2023 COMPR EHENS TONO METAB OLIC PANEL urea nitrogen (BUN) 16 mg/dL 7-25 normal Not Available [address], [address], 12/21/2023 15:09:40 12/19/19 24 12/21/2023 COMPR EHENS TONO METAB OLIC PANEL creatinine 1.07 mg/dL 0.70-1 .35 normal Not Available [address], [address], 12/21/2023 15:09:40 12/19/19 24 12/21/2023 COMPR EHENS TONO METAB OLIC PANEL eGFR 77 mL/mi n/1.7 3m2 > or = 60 normal Not Available [address], [address], 12/21/2023 15:09:40 12/19/19 24 12/21/2023 COMPR EHENS TONO METAB OLIC PANEL BUN/creatini ne ratio SEE NOTE: (calc ) 6-22 Not Repor trent: BUN and Creat inine are withi n refer ence range . Not Available [address], [address], 12/21/2023 15:09:40 12/19/19 24 12/21/2023 COMPR EHENS TONO METAB OLIC PANEL sodium 138 mmol/ L 135-14 6 normal Not Available [address], [address], 12/21/2023 15:09:40 12/19/19 24 12/21/2023 COMPR EHENS TONO METAB OLIC PANEL potassium 4.1 mmol/ L 3.5-5. 3 normal Not Available [address], [address], 12/21/2023 15:09:40 12/19/19 24 12/21/2023 COMPR EHENS TONO METAB OLIC PANEL chloride 104 mmol/ L 98-110 normal Not Available [address] [address] [place], [address], 12/21/2023 15:09:40 12/19/19 24 12/21/2023 COMPR EHENS TONO METAB OLIC PANEL carbon dioxide 25 mmol/ L 20-32 normal Not Available [address], [address], 12/21/2023 15:09:40 12/19/19 24 12/21/2023 COMPR EHENS TONO METAB OLIC PANEL calcium 9.3 mg/dL 8.6-10 .3 normal Not Available [facility] [address], [address], 12/21/2023 15:09:40 12/19/19 24 12/21/2023 COMPR EHENS TONO METAB OLIC PANEL protein, total 6.9 g/dL 6.1-8. 1 normal Not Available [address], [address], 12/21/2023 15:09:40 12/19/19 24 12/21/2023 COMPR EHENS TONO METAB OLIC PANEL albumin 4.4 g/dL 3.6-5. 1 normal Not Available [address], [address], 12/21/2023 15:09:40 12/19/19 24 12/21/2023 COMPR EHENS TONO METAB OLIC PANEL globulin 2.5 g/dL_ (calc ) 1.9-3. 7 normal Not Available [address], [address], 12/21/2023 15:09:40 12/19/19 24 12/21/2023 COMPR EHENS TONO METAB OLIC PANEL albumin/glob ulin ratio 1.8 (calc ) 1.0-2. 5 normal Not Available [address], [address], 12/21/2023 15:09:40 12/19/19 24 12/21/2023 COMPR EHENS TONO METAB OLIC PANEL bilirubin, total 0.5 mg/dL 0.2-1. 2 normal Not Available [address], [address], 12/21/2023 15:09:40 12/19/19 24 12/21/2023 COMPR EHENS TONO METAB OLIC PANEL alkaline phosphatase 90 U/L 35-144 normal Not Available [address] [address] [place], [address], 12/21/2023 15:09:40 12/19/19 24 12/21/2023 COMPR EHENS TONO METAB OLIC PANEL AST 16 U/L 10-35 normal Not Available [address], [address], 12/21/2023 15:09:40 12/19/19 24 12/21/2023 COMPR EHENS TONO METAB OLIC PANEL ALT 21 U/L 9-46 normal Not Available [address], [address], 12/21/2023 15:09:40 12/19/19 24 12/21/2023 CBC (INCL UDES DIFF/ PLT) white blood cell count 18.1 thous and/u L 3.8-10 .8 high Not Available [address], [address], 12/21/2023 15:09:41 12/19/19 24 12/21/2023 CBC (INCL UDES DIFF/ PLT) red blood cell count 5.01 adwoa on/uL 4.20-5 .80 normal Not Available [address], [address], 12/21/2023 15:09:41 12/19/19 24 12/21/2023 CBC (INCL UDES DIFF/ PLT) hemoglobin 15.7 g/dL 13.2-1 7.1 normal Not Available [address], [address], 12/21/2023 15:09:41 12/19/19 24 12/21/2023 CBC (INCL UDES DIFF/ PLT) hematocrit 45.8 % 38.5-5 0.0 normal Not Available [address], [address], 12/21/2023 15:09:41 12/19/19 24 12/21/2023 CBC (INCL UDES DIFF/ PLT) MCV 91.4 fL 80.0-1 00.0 normal Not Available [address], [address], 12/21/2023 15:09:41 12/19/19 24 12/21/2023 CBC (INCL UDES DIFF/ PLT) MCH 31.3 pg 27.0-3 3.0 normal Not Available [address], [address], 12/21/2023 15:09:41 12/19/19 24 12/21/2023 CBC (INCL UDES DIFF/ PLT) MCHC 34.3 g/dL 32.0-3 6.0 normal Not Available [address], [address], 12/21/2023 15:09:41 12/19/19 24 12/21/2023 CBC (INCL UDES DIFF/ PLT) RDW 13.0 % 11.0-1 5.0 normal Not Available [address], [address], 12/21/2023 15:09:41 12/19/19 24 12/21/2023 CBC (INCL UDES DIFF/ PLT) platelet count 387 thous and/u L 140-40 0 normal Not Available [address], [address], 12/21/2023 15:09:41 12/19/19 24 12/21/2023 CBC (INCL UDES DIFF/ PLT) MPV 9.9 fL 7.5-12 .5 normal Not Available [address], [address], 12/21/2023 15:09:41 12/19/19 24 12/21/2023 CBC (INCL UDES DIFF/ PLT) absolute neutrophils 04427 cells /uL 1500-7 800 high Not Available [facility] [address], [address], 12/21/2023 15:09:41 12/19/19 24 12/21/2023 CBC (INCL UDES DIFF/ PLT) absolute lymphocytes 4905 cells /uL 850-39 00 high Not Available [address], [address], 12/21/2023 15:09:41 12/19/19 24 12/21/2023 CBC (INCL UDES DIFF/ PLT) absolute monocytes 996 cells /uL 200-95 0 high Not Available [facility] [address], [address], 12/21/2023 15:09:41 12/19/19 24 12/21/2023 CBC (INCL UDES DIFF/ PLT) absolute eosinophils 507 cells /uL 15-500 high Not Available [facility] [address], [address], 12/21/2023 15:09:41 12/19/19 24 12/21/2023 CBC (INCL UDES DIFF/ PLT) absolute basophils 36 cells /uL 0-200 normal Not Available [facility] [address], [address], 12/21/2023 15:09:41 12/19/19 24 12/21/2023 CBC (INCL UDES DIFF/ PLT) neutrophils 64.4 % normal Not Available [facility] [address], [address], 12/21/2023 15:09:41 12/19/19 24 12/21/2023 CBC (INCL UDES DIFF/ PLT) lymphocytes 27.1 % normal Not Available [facility] [address], [address], 12/21/2023 15:09:41 12/19/19 24 12/21/2023 CBC (INCL UDES DIFF/ PLT) monocytes 5.5 % normal Not Available [facility] [address], [address], 12/21/2023 15:09:41 12/19/19 24 12/21/2023 CBC (INCL UDES DIFF/ PLT) eosinophils 2.8 % normal Not Available [facility] [address], [address], 12/21/2023 15:09:41 12/19/19 24 12/21/2023 CBC (INCL UDES DIFF/ PLT) basophils 0.2 % normal Not Available [facility] [address], [address], 12/21/2023 15:09:41 12/19/19 24 12/21/2023 T4, FREE T4, free 1.3 NG/dL 0.8-1. 8 normal Not Available [address], [address], 12/21/2023 15:09:41 12/19/19 24 12/21/2023 TSH TSH 2.89 mIU/L 0.40-4 .50 normal Not Available [address], [address], 12/21/2023 15:09:42 12/19/19 24 12/21/2023 PSA, TOTAL WITH REFLE X TO PSA, FREE PSA, total 0.3 NG/mL < or = 4.0 The Total PSA value from this assay syste m is stand ardiz ed again st the equim olar PSA stand sunshine. The test resul t will be appro ximat brandon 20% highe r when pritesh red to the WHO-s tanda rdize d Total PSA (Siem ens assay ). Pritesh rison of seria l PSA resul ts shoul d be inter prete d with this fact in mind. PSA was perfo rmed using the Beckm an Coult er Immun oassa y metho d. Value s obtai bridget from diffe rent assay metho ds canno t be used inter pena eably . PSA level s, regar dless of value , shoul d not be inter prete d as absol [place] evide nce of the prese nce or absen ce of disea se. Not Available [facility] [address], [address], 12/21/2023 15:09:42 12/31/19 24 01/01/2024 CBC (INCL UDES DIFF/ PLT) white blood cell count 17.1 thous and/u L 3.8-10 .8 high Not Available [address], [address], 01/01/2024 05:55:59 12/31/19 24 01/01/2024 CBC (INCL UDES DIFF/ PLT) red blood cell count 5.19 adwoa on/uL 4.20-5 .80 normal Not Available [address], [address], 01/01/2024 05:55:59 12/31/19 24 01/01/2024 CBC (INCL UDES DIFF/ PLT) hemoglobin 16.2 g/dL 13.2-1 7.1 normal Not Available [address], [address], 01/01/2024 05:55:59 12/31/19 24 01/01/2024 CBC (INCL UDES DIFF/ PLT) hematocrit 46.6 % 38.5-5 0.0 normal Not Available [facility] [address], [address], 01/01/2024 05:55:59 12/31/19 24 01/01/2024 CBC (INCL UDES DIFF/ PLT) MCV 89.8 fL 80.0-1 00.0 normal Not Available [facility] [address], [address], 01/01/2024 05:55:59 12/31/19 24 01/01/2024 CBC (INCL UDES DIFF/ PLT) MCH 31.2 pg 27.0-3 3.0 normal Not Available [facility] [address], [address], 01/01/2024 05:55:59 12/31/19 24 01/01/2024 CBC (INCL UDES DIFF/ PLT) MCHC 34.8 g/dL 32.0-3 6.0 normal Not Available [facility] [address] [place], [address], 01/01/2024 05:55:59 12/31/19 24 01/01/2024 CBC (INCL UDES DIFF/ PLT) RDW 12.9 % 11.0-1 5.0 normal Not Available [address], [address], 01/01/2024 05:55:59 12/31/19 24 01/01/2024 CBC (INCL UDES DIFF/ PLT) platelet count 394 thous and/u L 140-40 0 normal Not Available [facility] [address], [address], 01/01/2024 05:55:59 12/31/19 24 01/01/2024 CBC (INCL UDES DIFF/ PLT) MPV 9.7 fL 7.5-12 .5 normal Not Available [facility] [address], [address], 01/01/2024 05:55:59 12/31/19 24 01/01/2024 CBC (INCL UDES DIFF/ PLT) absolute neutrophils 50755 cells /uL 1500-7 800 high Not Available [facility] [address], [address], 01/01/2024 05:55:59 12/31/19 24 01/01/2024 CBC (INCL UDES DIFF/ PLT) absolute lymphocytes 4942 cells /uL 850-39 00 high Not Available [facility] [address], [address], 01/01/2024 05:55:59 12/31/19 24 01/01/2024 CBC (INCL UDES DIFF/ PLT) absolute monocytes 992 cells /uL 200-95 0 high Not Available [facility] [address], [address], 01/01/2024 05:55:59 12/31/19 24 01/01/2024 CBC (INCL UDES DIFF/ PLT) absolute eosinophils 393 cells /uL 15-500 normal Not Available [address], [address], 01/01/2024 05:55:59 12/31/19 24 01/01/2024 CBC (INCL UDES DIFF/ PLT) absolute basophils 51 cells /uL 0-200 normal Not Available [address], [address], 01/01/2024 05:55:59 12/31/19 24 01/01/2024 CBC (INCL UDES DIFF/ PLT) neutrophils 62.7 % normal Not Available [address], [address], 01/01/2024 05:55:59 12/31/1901/01/2024 CBC (INCL UDES DIFF/ PLT) lymphocytes 28.9 % normal Not Available [address], [address], 01/01/2024 05:55:59 12/31/1901/01/2024 CBC (INCL UDES DIFF/ PLT) monocytes 5.8 % normal Not Available [address], [address], 01/01/2024 05:55:59 12/31/1901/01/2024 CBC (INCL UDES DIFF/ PLT) eosinophils 2.3 % normal Not Available [address], [address], 01/01/2024 05:55:59 12/31/1901/01/2024 CBC (INCL UDES DIFF/ PLT) basophils 0.3 % normal Not Available [address], [address], 01/01/2024 05:55:59 03/17/20 24 03/18/2024 CBC (INCL UDES DIFF/ PLT) white blood cell count 13.2 thous and/u L 3.8-10 .8 high Not Available [address], [address], 03/18/2024 06:06:18 03/17/20 24 03/18/2024 CBC (INCL UDES DIFF/ PLT) red blood cell count 5.35 adwoa on/uL 4.20-5 .80 normal Not Available [address], [address], 03/18/2024 06:06:18 03/17/2003/18/2024 CBC (INCL UDES DIFF/ PLT) hemoglobin 16.3 g/dL 13.2-1 7.1 normal Not Available [address], [address], 03/18/2024 06:06:18 03/17/2003/18/2024 CBC (INCL UDES DIFF/ PLT) hematocrit 49.1 % 38.5-5 0.0 normal Not Available [address], [address], 03/18/2024 06:06:18 03/17/20 24 03/18/2024 CBC (INCL UDES DIFF/ PLT) MCV 91.8 fL 80.0-1 00.0 normal Not Available [address], [address], 03/18/2024 06:06:18 03/17/2003/18/2024 CBC (INCL UDES DIFF/ PLT) MCH 30.5 pg 27.0-3 3.0 normal Not Available [facility] [address], [address], 03/18/2024 06:06:18 03/17/20 24 03/18/2024 CBC (INCL UDES DIFF/ PLT) MCHC 33.2 g/dL 32.0-3 6.0 normal Not Available [facility] [address], [address], 03/18/2024 06:06:18 03/17/20 24 03/18/2024 CBC (INCL UDES DIFF/ PLT) RDW 13.5 % 11.0-1 5.0 normal Not Available [address], [address], 03/18/2024 06:06:18 03/17/20 24 03/18/2024 CBC (INCL UDES DIFF/ PLT) platelet count 392 thous and/u L 140-40 0 normal Not Available [address], [address], 03/18/2024 06:06:18 03/17/2003/18/2024 CBC (INCL UDES DIFF/ PLT) MPV 10.0 fL 7.5-12 .5 normal Not Available [address], [address], 03/18/2024 06:06:18 03/17/2003/18/2024 CBC (INCL UDES DIFF/ PLT) absolute neutrophils 7590 cells /uL 1500-7 800 normal Not Available [address], [address], 03/18/2024 06:06:18 03/17/2003/18/2024 CBC (INCL UDES DIFF/ PLT) absolute lymphocytes 4184 cells /uL 850-39 00 high Not Available [address], [address], 03/18/2024 06:06:18 03/17/2003/18/2024 CBC (INCL UDES DIFF/ PLT) absolute monocytes 1056 cells /uL 200-95 0 high Not Available [address], [address], 03/18/2024 06:06:18 03/17/20 03/18/2024 CBC (INCL UDES DIFF/ PLT) absolute eosinophils 343 cells /uL 15-500 normal Not Available [address], [address], 03/18/2024 06:06:18 03/17/2003/18/2024 CBC (INCL UDES DIFF/ PLT) absolute basophils 26 cells /uL 0-200 normal Not Available [address], [address], 03/18/2024 06:06:18 03/17/2003/18/2024 CBC (INCL UDES DIFF/ PLT) neutrophils 57.5 % normal Not Available [address], [address], 03/18/2024 06:06:18 03/17/2003/18/2024 CBC (INCL UDES DIFF/ PLT) lymphocytes 31.7 % normal Not Available [address], [address], 03/18/2024 06:06:18 03/17/2003/18/2024 CBC (INCL UDES DIFF/ PLT) monocytes 8.0 % normal Not Available [address], [address], 03/18/2024 06:06:18 03/17/2003/18/2024 CBC (INCL UDES DIFF/ PLT) eosinophils 2.6 % normal Not Available [address], [address], 03/18/2024 06:06:18 03/17/2003/18/2024 CBC (INCL UDES DIFF/ PLT) basophils 0.2 % normal Not Available [address], [address], 03/18/2024 06:06:18 04/17/20 24 04/18/2024 CBC (INCL UDES DIFF/ PLT) white blood cell count 15.5 thous and/u L 3.8-10 .8 high Not Available [address], [address], 04/18/2024 05:23:03 04/17/2004/18/2024 CBC (INCL UDES DIFF/ PLT) red blood cell count 5.14 adwoa on/uL 4.20-5 .80 normal Not Available [address], [address], 04/18/2024 05:23:03 04/17/2004/18/2024 CBC (INCL UDES DIFF/ PLT) hemoglobin 15.9 g/dL 13.2-1 7.1 normal Not Available [address], [address], 04/18/2024 05:23:03 04/17/2004/18/2024 CBC (INCL UDES DIFF/ PLT) hematocrit 46.5 % 38.5-5 0.0 normal Not Available [address], [address], 04/18/2024 05:23:03 04/17/2004/18/2024 CBC (INCL UDES DIFF/ PLT) MCV 90.5 fL 80.0-1 00.0 normal Not Available [address], [address], 04/18/2024 05:23:03 04/17/2004/18/2024 CBC (INCL UDES DIFF/ PLT) MCH 30.9 pg 27.0-3 3.0 normal Not Available [address], [address], 04/18/2024 05:23:03 04/17/2004/18/2024 CBC (INCL UDES DIFF/ PLT) MCHC 34.2 g/dL 32.0-3 6.0 normal For adult s, a sligh t decre ase in the calcu lated MCHC value (in the range of 30 to 32 g/dL) is most likel y not clini vale carvajali zain t; kristine er, it shoul d be inter prete d with cauti on in virtua [facility] n with other red cell fauzia eters and the patie nt's clini ara condi tion. Not Available [facility] [address], [address], 04/18/2024 05:23:03 04/17/2004/18/2024 CBC (INCL UDES DIFF/ PLT) RDW 13.1 % 11.0-1 5.0 normal Not Available [facility] [address], [address], 04/18/2024 05:23:03 04/17/2004/18/2024 CBC (INCL UDES DIFF/ PLT) platelet count 424 thous and/u L 140-40 0 high Not Available [facility] [address], [address], 04/18/2024 05:23:03 04/17/2004/18/2024 CBC (INCL UDES DIFF/ PLT) MPV 9.2 fL 7.5-12 .5 normal Not Available [facility] [address], [address], 04/18/2024 05:23:03 04/17/2004/18/2024 CBC (INCL UDES DIFF/ PLT) absolute neutrophils 8370 cells /uL 1500-7 800 high Not Available [facility] [address], [address], 04/18/2024 05:23:03 04/17/2004/18/2024 CBC (INCL UDES DIFF/ PLT) absolute lymphocytes 5642 cells /uL 850-39 00 high Not Available [facility] [address], [address], 04/18/2024 05:23:03 04/17/2004/18/2024 CBC (INCL UDES DIFF/ PLT) absolute monocytes 1054 cells /uL 200-95 0 high Not Available [address], [address], 04/18/2024 05:23:03 04/17/2004/18/2024 CBC (INCL UDES DIFF/ PLT) absolute eosinophils 388 cells /uL 15-500 normal Not Available [facility] [address], [address], 04/18/2024 05:23:03 04/17/2004/18/2024 CBC (INCL UDES DIFF/ PLT) absolute basophils 47 cells /uL 0-200 normal Not Available [facility] [address], [address], 04/18/2024 05:23:03 04/17/2004/18/2024 CBC (INCL UDES DIFF/ PLT) neutrophils 54 % normal Not Available [facility] [address], [address], 04/18/2024 05:23:03 04/17/2004/18/2024 CBC (INCL UDES DIFF/ PLT) lymphocytes 36.4 % normal Not Available [address], [address], 04/18/2024 05:23:03 04/17/2004/18/2024 CBC (INCL UDES DIFF/ PLT) monocytes 6.8 % normal Not Available [facility] [address], [address], 04/18/2024 05:23:03 04/17/2004/18/2024 CBC (INCL UDES DIFF/ PLT) eosinophils 2.5 % normal Not Available [facility] [address], [address], 04/18/2024 05:23:03 04/17/20 24 04/18/2024 CBC (INCL UDES DIFF/ PLT) basophils 0.3 % normal Not Available [address], [address], 04/18/2024 05:23:03 10/31/19 25 10/31/2024 LIPID PANEL , STAND SUNSHINE cholesterol, total 273 mg/dL <200 high Not Available [address], [address], 10/31/2024 20:52:36 10/31/19 25 10/31/2024 LIPID PANEL , STAND SUNSHINE HDL cholesterol 34 mg/dL > or = 40 low Not Available [address], [address], 10/31/2024 20:52:36 10/31/19 25 10/31/2024 LIPID PANEL , STAND SUNSHINE triglyceride s 548 mg/dL <150 high If a non-f astin g speci men was colle cted, consi edgar repea t trigl yceri de testi ng on a fasti ng speci men if clini vale indic ated. Ramses walker et al. J. of Clin. Lipid ol. 2015; 9:129 -169. There is incre ased risk of pancr eatit is when the trigl yceri de juan ntrat ion is very high (> or = 500 mg/dL , espec ially if > or = 1000 mg/dL ). Ramses walker et al. J. of Clin. Lipid ol. 2015; 9:129 -169. Not Available [facility] [address], [address], 10/31/2024 20:52:36 10/31/1910/31/2024 LIPID PANEL , STAND SUNSHINE LDL-choleste rol mg/dL _(ara c) LDL lian stero l not calcu lated . Trigl yceri de level s great er than 400 mg/dL inval idate calcu lated LDL resul ts. Refer ence range : <100 Irving able range <100 mg/dL for prima ry preve ntion ; <70 mg/dL for patie nts with CHD or diabe tic patie nts with > or = 2 CHD risk facto rs. LDL-C is now calcu lated using the Francine n-Hop kins calcu elieseramos n, which is a valid ated novel metho d provi ding veronika r accur acy than the Fried cam[place] equat ion in the estim ation of LDL-C . Francine barfield SS et al. CRISTINA. 2013; 310(1 9): 2061- 206 (http ://ed ucati on.Qu estDi Alt12 Apps. com/f aq/FA Q164) Not Available [facility] [address] [place], [address], 10/31/2024 20:52:36 10/31/19 25 10/31/2024 LIPID PANEL , STAND SUNSHINE chol/HDLC ratio 8.0 (calc ) <5.0 high Not Available [facility] [address] [place], [address], 10/31/2024 20:52:36 10/31/19 25 10/31/2024 LIPID PANEL , STAND SUNSHINE non HDL cholesterol 239 mg/dL _(ara c) <130 high Non-H DL level > or = 220 is very high and may indic ate nusrat ic famil ial hyper lian stero lemia (FH). Clini ara asses sment and measu remen t of blood lipid level s shoul d be consi dered for all first -degr ee relat tu of patie nts with an FH diagn osis. For patie nts with diabe [place] plus 1 major ASCVD risk facto r, treat ing to a non-H DL-C goal of <100 mg/dL (LDL- C of <70 mg/dL ) is consi dered a thera peuti c optio n. Not Available [facility] [address] [place], [address], 10/31/2024 20:52:36 10/31/19 25 10/31/2024 COMPR EHENS TONO METAB OLIC PANEL glucose 104 mg/dL 65-99 high Fasti ng refer ence inter indira For someo ne witho ut known diabe [place], a gluco se value betwe en 100 and 125 mg/dL is consi stent with predi abete s and shoul d be confi rmed with a follo w-up test. Not Available [address], [address], 10/31/2024 20:52:37 10/31/19 25 10/31/2024 COMPR EHENS TONO METAB OLIC PANEL urea nitrogen (BUN) 18 mg/dL 7-25 normal Not Available [address], [address], 10/31/2024 20:52:37 10/31/19 25 10/31/2024 COMPR EHENS TONO METAB OLIC PANEL creatinine 1.09 mg/dL 0.70-1 .35 normal Not Available [address], [address], 10/31/2024 20:52:37 10/31/19 25 10/31/2024 COMPR EHENS TONO METAB OLIC PANEL eGFR 75 mL/mi n/1.7 3m2 > or = 60 normal Not Available [address], [address], 10/31/2024 20:52:37 10/31/19 25 10/31/2024 COMPR EHENS TONO METAB OLIC PANEL BUN/creatini ne ratio SEE NOTE: (calc ) 6-22 Not Repor trent: BUN and Creat inine are withi n refer ence range . Not Available [address], [address], 10/31/2024 20:52:37 10/31/19 25 10/31/2024 COMPR EHENS TONO METAB OLIC PANEL sodium 137 mmol/ L 135-14 6 normal Not Available [address], [address], 10/31/2024 20:52:37 10/31/19 25 10/31/2024 COMPR EHENS TONO METAB OLIC PANEL potassium 5.0 mmol/ L 3.5-5. 3 normal Not Available [address], [address], 10/31/2024 20:52:37 10/31/19 25 10/31/2024 COMPR EHENS TONO METAB OLIC PANEL chloride 101 mmol/ L 98-110 normal Not Available [address], [address], 10/31/2024 20:52:37 10/31/19 25 10/31/2024 COMPR EHENS TONO METAB OLIC PANEL carbon dioxide 27 mmol/ L 20-32 normal Not Available [address], [address], 10/31/2024 20:52:37 10/31/19 25 10/31/2024 COMPR EHENS TONO METAB OLIC PANEL calcium 9.6 mg/dL 8.6-10 .3 normal Not Available [address], [address], 10/31/2024 20:52:37 10/31/19 25 10/31/2024 COMPR EHENS TONO METAB OLIC PANEL protein, total 7.5 g/dL 6.1-8. 1 normal Not Available [address], [address], 10/31/2024 20:52:37 10/31/19 25 10/31/2024 COMPR EHENS TONO METAB OLIC PANEL albumin 4.6 g/dL 3.6-5. 1 normal Not Available [address] [address], [address], 10/31/2024 20:52:37 10/31/19 25 10/31/2024 COMPR EHENS TONO METAB OLIC PANEL globulin 2.9 g/dL_ (calc ) 1.9-3. 7 normal Not Available [address], [address], 10/31/2024 20:52:37 10/31/19 25 10/31/2024 COMPR EHENS TONO METAB OLIC PANEL albumin/glob ulin ratio 1.6 (calc ) 1.0-2. 5 normal Not Available [address], [address], 10/31/2024 20:52:37 10/31/19 25 10/31/2024 COMPR EHENS OTNO METAB OLIC PANEL bilirubin, total 0.3 mg/dL 0.2-1. 2 normal Not Available [address], [address], 10/31/2024 20:52:37 10/31/19 25 10/31/2024 COMPR EHENS TONO METAB OLIC PANEL alkaline phosphatase 69 U/L 35-144 normal Not Available [address], [address], 10/31/2024 20:52:37 10/31/19 25 10/31/2024 COMPR EHENS TONO METAB OLIC PANEL AST 13 U/L 10-35 normal Not Available [address], [address], 10/31/2024 20:52:37 10/31/19 25 10/31/2024 COMPR EHENS TONO METAB OLIC PANEL ALT 10 U/L 9-46 normal Not Available [address], [address], 10/31/2024 20:52:37 10/31/19 25 10/31/2024 CBC (INCL UDES DIFF/ PLT) white blood cell count 16.6 thous and/u L 3.8-10 .8 high Not Available [address] [place], [address], 10/31/2024 20:52:39 10/31/19 25 10/31/2024 CBC (INCL UDES DIFF/ PLT) red blood cell count 5.30 adwoa on/uL 4.20-5 .80 normal Not Available [address], [address], 10/31/2024 20:52:39 10/31/19 25 10/31/2024 CBC (INCL UDES DIFF/ PLT) hemoglobin 16.3 g/dL 13.2-1 7.1 normal Not Available [address], [address], 10/31/2024 20:52:39 10/31/19 25 10/31/2024 CBC (INCL UDES DIFF/ PLT) hematocrit 49.5 % 38.5-5 0.0 normal Not Available [address], [address], 10/31/2024 20:52:39 10/31/19 25 10/31/2024 CBC (INCL UDES DIFF/ PLT) MCV 93.4 fL 80.0-1 00.0 normal Not Available [address], [address], 10/31/2024 20:52:39 10/31/19 25 10/31/2024 CBC (INCL UDES DIFF/ PLT) MCH 30.8 pg 27.0-3 3.0 normal Not Available [address], [address], 10/31/2024 20:52:39 10/31/19 25 10/31/2024 CBC (INCL UDES DIFF/ PLT) MCHC 32.9 g/dL 32.0-3 6.0 normal For adult s, a sligh t decre ase in the calcu lated MCHC value (in the range of 30 to 32 g/dL) is most likel y not clini vale signi fican t; kristine er, it shoul d be inter prete d with cauti on in corre [facility] with other red cell fauzia eters and the patie nt's clini ara condi tion. Not Available [facility] [address], [address], 10/31/2024 20:52:39 10/31/19 25 10/31/2024 CBC (INCL UDES DIFF/ PLT) RDW 14.0 % 11.0-1 5.0 normal Not Available [facility] [address], [address], 10/31/2024 20:52:39 10/31/19 25 10/31/2024 CBC (INCL UDES DIFF/ PLT) platelet count 393 thous and/u L 140-40 0 normal Not Available [facility] [address], [address], 10/31/2024 20:52:39 10/31/19 25 10/31/2024 CBC (INCL UDES DIFF/ PLT) MPV 9.2 fL 7.5-12 .5 normal Not Available [address], [address], 10/31/2024 20:52:39 10/31/19 25 10/31/2024 CBC (INCL UDES DIFF/ PLT) absolute neutrophils 02806 cells /uL 1500-7 800 high Not Available [facility] [address], [address], 10/31/2024 20:52:39 10/31/19 25 10/31/2024 CBC (INCL UDES DIFF/ PLT) absolute lymphocytes 4814 cells /uL 850-39 00 high Not Available [facility] [address], [address], 10/31/2024 20:52:39 10/31/19 25 10/31/2024 CBC (INCL UDES DIFF/ PLT) absolute monocytes 1046 cells /uL 200-95 0 high Not Available [facility] [address], [address], 10/31/2024 20:52:39 10/31/19 25 10/31/2024 CBC (INCL UDES DIFF/ PLT) absolute eosinophils 332 cells /uL 15-500 normal Not Available [facility] [address], [address], 10/31/2024 20:52:39 10/31/19 25 10/31/2024 CBC (INCL UDES DIFF/ PLT) absolute basophils 33 cells /uL 0-200 normal Not Available [facility] [address], [address], 10/31/2024 20:52:39 10/31/19 25 10/31/2024 CBC (INCL UDES DIFF/ PLT) neutrophils 62.5 % normal Not Available [facility] [address], [address], 10/31/2024 20:52:39 10/31/19 25 10/31/2024 CBC (INCL UDES DIFF/ PLT) lymphocytes 29.0 % normal Not Available [facility] [address], [address], 10/31/2024 20:52:39 10/31/19 25 10/31/2024 CBC (INCL UDES DIFF/ PLT) monocytes 6.3 % normal Not Available [facility] [address], [address], 10/31/2024 20:52:39 10/31/19 25 10/31/2024 CBC (INCL UDES DIFF/ PLT) eosinophils 2.0 % normal Not Available [facility] [address], [address], 10/31/2024 20:52:39 10/31/19 25 10/31/2024 CBC (INCL UDES DIFF/ PLT) basophils 0.2 % normal Not Available [facility] [address] [address] [place], [address], 10/31/2024 20:52:39 10/31/1910/31/2024 T4, FREE T4, free 1.4 NG/dL 0.8-1. 8 normal Not Available [facility] [address] [place], [address], 10/31/2024 20:52:40 10/31/19 25 10/31/2024 TSH TSH 0.49 mIU/L 0.40-4 .50 normal Not Available [facility] [address] [address] [place], [address], 10/31/2024 20:52:41 10/31/1910/31/2024 HEMOG LOBIN A1C hemoglobin A1C 5.9 %_of_ total _HGB <5.7 high For someo ne witho ut known diabe montana, a hemog lobin A1c value betwe en 5.7% and 6.4% is consi stent with predi abete s and shoul d be confi rmed with a follo w-up test. For someo ne with known diabe montana, a value <7% indic ates that their diabe montana is well contr olled . A1c targe ts shoul d be indiv idual ized based on durat ion of diabe montana, age, comor bid condi tions , and other consi derat ions. This assay resul t is consi stent with an incre ased risk of diabe montana. Curre ntly, no conse nsus exist s regar ding use of hemog lobin A1c for diagn osis of diabe montana for child juaquin. Not Available [facility] [address] [place], [address], 10/31/2024 20:52:42 10/31/1910/31/2024 DRUG MONIT OR, BASE PANEL , SCREE N, URINE benzodiazepi kirill NEGATI VE NG/mL <100 See Note A See Note A Not Available [facility] [address], [place], [address], 10/31/2024 20:52:43 10/31/19 25 10/31/2024 DRUG MONIT OR, BASE PANEL , SCREE N, URINE cocaine metabolite NEGATI VE NG/mL <150 See Note A See Note A Not Available [address], [place], [address], 10/31/2024 20:52:43 10/31/19 25 10/31/2024 DRUG MONIT OR, BASE PANEL , SCREE N, URINE opiates POSITI VE NG/mL <100 abnormal See Note A See Note A Not Available [address], [place], [address], 10/31/2024 20:52:43 10/31/19 25 10/31/2024 DRUG MONIT OR, BASE PANEL , SCREE N, URINE oxycodone NEGATI VE NG/mL <100 See Note A See Note A Not Available [address], [place], [address], 10/31/2024 20:52:43 10/31/19 25 10/31/2024 DRUG MONIT OR, BASE PANEL , SCREE N, URINE creatinine 49.2 mg/dL > or = 20.0 Not Available [address], [place], [address], 10/31/2024 20:52:43 10/31/19 25 10/31/2024 DRUG MONIT OR, BASE PANEL , SCREE N, URINE pH 5.3 4.5-9. 0 Not Available [address], [place], [address], 10/31/2024 20:52:43 10/31/19 25 10/31/2024 DRUG MONIT OR, BASE PANEL , SCREE N, URINE oxidant NEGATI VE mcg/m L <200 Not Available [address], [place], [address], 10/31/2024 20:52:43 10/31/19 25 10/31/2024 DRUG MONIT ORING TEMPL ATE notes and comments This drug testi ng is for medic al treat ment only. Shahla sis was perfo rmed as non-f orens ic testi ng and these resul ts shoul d be used only by healt hcare provi ders to rende r diagn osis or treat ment, or to monit or progr ess of medic al condi tions . Note A: The resul ts are presu mptiv e; based only on scree jie metho ds, and they have not been confi rmed by a defin itive metho d. Healt hcare Provi ders needi ng Inter preta tion delbert tannick prado e conta ct us at 1.877 .40.R XTOX (1.87 [phone] ) M-F, 8am to 10pm EST Not Available [facility] [address] [place], [address], 10/31/2024 20:52:44 12/29/19 23 12/28/2022 LDCT, chest , for lung cance r scree jie No observ ation record ed. [email or web address] [facility] [address], [place], [address], 12/29/2022 08:28:09 Result Notes None recorded. Problems Name Problem SNOMED Code Status Onset Date Resolution Date Notes Provider Name and Address Organization Details Recorded Time White blood cell count outside reference range 203807489 Active Not Available [facility] 3 14:49:41 Pure hypercholeste rolemia 151824753 Active Yamini Little CMA null, [place] [facility] 5 12:47:30 Osteoarthriti s 655551639 Active Not Available [facility] 3 14:49:41 Onychomycosis due to dermatophyte 557920568 Active Not Available [facility] 3 14:49:42 History of polyp of colon 730457874 Active Not Available [facility] 3 14:49:42 Anxiety 25391817 Active Not Available [facility] 3 14:49:42 Coronary arteriosclero sis 22131274 Active Not Available [facility] 3 14:49:42 Herniation of nucleus pulposus 19700448 Active Not Available [facility] 3 14:49:42 Essential hypertension 15153413 Active 2016 Not Available [facility] 3 14:49:42 Chronic pain syndrome 902453711 Active 2017 Not Available [facility] 3 14:49:41 Umbilical hernia 911333764 Active 2018 Not Available [facility] 3 14:49:41 Epidermoid cyst of skin of neck 452095790 Active 2018 Not Available [facility] 3 14:49:42 Lumbar radiculopathy 302653565 Active 2021 Not Available [facility] 3 14:49:41 Laceration of upper limb 040509345 Active 2021 Not Available [facility] 3 14:49:41 Acute sinusitis 72640245 Active 2021 Not Available [facility] 3 14:49:41 Disorder of prostate 38629351 Active 2021 Not Available [facility] 3 14:49:41 Degeneration of intervertebra l disc 38002662 Active 2022 VINICIUS Merrill, [place] [facility] 3 11:01:13 Hyperglycemia 88771755 Active 2022 Yamini Little CMA null, [place] [facility] 3 14:27:08 Leukocytosis 493491188 Active 2023 Ben Denney MD [address], [address] , [place] [facility] 5 14:52:15 Leukopenia 81449497 Active 2023 Yamini Little CMA null, [place] [facility] 5 12:00:02 Acute pharyngitis 272770157 Active 2023 Ben Denney MD [address], [place], [address] , [place] [facility] 4 17:23:05 Anemia 649954352 Active 2023 Yamini Little CMA null, [place] [facility] 5 10:17:01 Problem Notes None recorded. Procedures Surgical History Date Name Laterality Status Provider Name and Address Organization Details Recorded Time Medicare Wellness CPT Code, Welcome completed Amee Moreno RN [facility] 11/27/2023 16:50:03 Imaging Results None recorded. Procedure Notes None recorded. Medical Equipment None Reported. Medications Name Sig Start Date Stop Date Status Note LastModified by Organization Details LastModified Time amoxicill in 500 mg capsule TAKE 1 CAPSULE BY MOUTH EVERY 8 HOURS 05/27 completed Not Available Not Available Not Available atorvasta tin 40 mg tablet take one tablet daily 11/01 completed Not Available Not Available Not Available atorvasta tin 80 mg tablet TAKE 1 TABLET BY MOUTH EVERY DAY active Not Available Not Available No t Available nicotine 14 mg/24 hr daily transderm al patch 10/28 completed Not Available Not Available Not Available azithromy alex 250 mg tablet Take 2 TABLET EVERY DAY by oral route for 1 day then one daily 10/28 completed Not Available Not Available Not Available benzonata te 200 mg capsule Take 1 capsule 3 times a day by oral route. 10/28 completed Not Available Not Available Not Available Medrol (Kalyan) 4 mg tablets in a dose pack USE DIRECTED PER PACKAGE INSERT 11/21 completed Not Available Not Available Not Available Kings Low Dose Aspirin 81 mg tablet,de layed release Take 1 tablet every day by oral route. 2012 active Not Available Not Available Not Avai lable Plavix 75 mg tablet Take 1 tablet every day by oral route. 2012 active Not Available Not Available Not Avai lable hydrocodo ne 7.5 mg-acetam inophen 325 mg tablet TAKE 1 TABLET BY MOUTH THREE TIMES DAILY active Not Available Not Available No t Available cephalexi n 500 mg capsule 10/07 completed Not Available Not Available Not Available Cipro 500 mg tablet Take 1 tablet twice a day by oral route for 10 days. 06/12 completed Not Available Not Available Not Available Winston 10 mg-325 mg tablet one three times a day for osteoart hritis and herniate d nucleus pulposus 08/08 completed First Name Date of Date Filled Label Name Strength Metric Quantity Days Supply Payment Method Pharmacy Name/ City Prescrib er Name [facility] 05/08/19 58 0 LORAZEPA M 1MG 90 30 [employer]/ BEN TOLEDO MD [place] [facility] 05/08/19 58 06/17/20 19 Diphenox ylate Hydrochl oride And Atropine Sulfate 2.5 mg 16 4 [employer]/ BEN TOLEDO MD [facility] 05/08/19 58 06/09/20 19 HYDROCOD ON-ACETA MINOPHN 10-325 90 30 [employer]/ BEN TOLEDO MD [place] [facility] GAL[facility] 05/08/19 58 06/09/20 19 LORAZEPA M 1MG 90 30 SparCoderanc [employer]./ BEN TOLEDO MD [place] [facility] 05/08/19 58 05/09/20 19 Hydrocod one-Acet aminophn 10-325 90 30 [employer]/ [employer] [place] [facility] 05/08/19 58 05/06/20 19 LORAZEPA M 1MG 90 30 Apttus./ BEN TOLEDO MD [facility]AL[facility] 05/08/19 58 04/09/20 19 Hydrocod one-Acet aminophn 10-325 90 30 [facility] 324447/ BEN TOLEDO MD SD MIGUEL GALINDO 05/08/19 58 04/09/20 19 LORAZEPA M 1MG 90 30 [employer]/ BEN TOLEDO MD [facility] 05/08/19 58 9 LORAZEPA M 1 MG 90 30 Insuranc e Not Available Not Available Not Available Levaquin 500 mg tablet Take 1 tablet every 24 hours by oral route. 12/18 completed Not Available Not Available Not Available metoprolo l succinate ER 25 mg tablet,ex tended release 24 hr TK 1 T PO D active Not Available Not Available No t Available lorazepam 1 mg tablet TAKE 1 TABLET BY MOUTH THREE TIMES DAILY NEEDED FOR ANXIETY OF NON WORKING DAYS F41.9 active Not Available Not Available No t Available Lomotil 2.5 mg-0.025 mg tablet Take 1 tablet 4 times a day by oral route as needed. 07/10 completed Not Available Not Available Not Available lisinopri l 2.5 mg tablet TK 1 T PO D 11/01 completed Not Available Not Available Not Available ezetimibe 10 mg tablet Take 1 tablet every day by oral route. active Not Available Not Available No t Available Crestor 10 mg tablet Take 1 tablet every day by oral route. 2012 active Not Available Not Available Not Avai lable Cialis 20 mg tablet Take 1 TABLET as needed an hour before sexual acitivty 02/06 completed Not Available Not Available Not Available metoprolo l tartrate 25 mg tablet TAKE ONE-HALF TABLET BID 02/06 completed Not Available Not Available Not Available Brilinta 90 mg tablet 11/01 completed Not Available Not Available Not Available Chantix Starting Month Box 0.5 mg (11)-1 mg (42) tablets in dose pack As directed 12/25 completed Not Available Not Available Not Available Vascepa 1 gram capsule Take 1 capsule 3 times a day by oral route. 11/01 completed Not Available Not Available Not Available Vitals Date Recorded Body height Body mass index (BMI) Body weight Heart rate Body temperature Oxygen saturation Oxygen saturation in Arterial blood by Pulse oximetry Systolic And Diastolic Provider Name and Address Organization Details Last Updated DateTime 5 194.31 cm 26.9 kg/m2 291789. 69 g 84 /min 97 [degF] 94 % 94 % 120/72 mm[Hg] Rosa SILVA [place] [employer] [facility] 5 14:44:12 Date Recorded Body height Body mass index (BMI) Body weight Body temperature Heart rate Oxygen saturation Oxygen saturation in Arterial blood by Pulse oximetry Systolic And Diastolic Provider Name and Address Organization Details Last Updated DateTime 3 194.31 cm 26.4 kg/m2 06043.3 2 g 98 [degF] 92 /min 95 % 95 % 136/80 mm[Hg] Gabby Hagan MA [facility] [employer] [facility] 3 14:33:03 Date Recorded Body height Body mass index (BMI) Body weight Heart rate Body temperature Oxygen saturation Oxygen saturation in Arterial blood by Pulse oximetry Systolic And Diastolic Provider Name and Address Organization Details Last Updated DateTime 4 194.31 cm 26.4 kg/m2 63766.3 2 g 92 /min 97 [degF] 96 % 96 % 138/80 mm[Hg] [facility] 4 16:43:38 Date Recorded Pain severity - 0-10 verbal numeric rating [Score] - Reported Provider Name and Address Organization Details Last Updated DateTime 11/27/2023 5 Amee Moreno RN [facility] [employer] 11/27/2023 16:50:16 Date Recorded Body height Body mass index (BMI) Body weight Heart rate Body temperature Oxygen saturation Oxygen saturation in Arterial blood by Pulse oximetry Systolic And Diastolic Provider Name and Address Organization Details Last Updated DateTime 3 194.31 cm 28.1 kg/m2 599106. 61 g 84 /min 97 [degF] 97 % 97 % 138/80 mm[Hg] [place] [facility] [employer] 3 14:21:31 Date Recorded Body height Body mass index (BMI) Body weight Heart rate Body temperature Oxygen saturation Oxygen saturation in Arterial blood by Pulse oximetry Systolic And Diastolic Provider Name and Address Organization Details Last Updated DateTime 4 194.31 cm 27 kg/m2 465294. 28 g 74 /min 97 [degF] 96 % 96 % 122/82 mm[Hg] PRETTY Doty [facility] [employer] [facility] 4 16:10:14 Social History Question Answer Notes LastModified by Organizat ion Details LastModified Time Tobacco Smoking Status Current Every Day Smoker Not Available [facility] 08/23/2022 14:45:19 Do You Have An Advance Directive? No [email or web address] Information not available 11/27/2023 Are You Blind Or Do You Have Difficulty Seeing? No [email or web address] Information not available 11/27/2023 In The 14 Days Before Symptom Onset, Have You Had Close Contact With A Laboratory-confi rmed COVID-19 While That Case Was Ill? No [id number] Information not available 08/23/2022 In The 14 Days Before Symptom Onset, Have You Had Close Contact With A Person Who Is Under Investigation For COVID-19 While That Person Was Ill? No [id number] Information not available 08/23/2022 Are You Deaf Or Do You Have Serious Difficulty Hearing? No [email or web address] Information not available 11/27/2023 What Type Of Diet Are You Following? REGULAR [email or web address] Information not available 11/27/2023 Have There Been Any Changes To Your Family Or Social Situation? No [email or web address] Information not available 11/27/2023 What Is The Fluoride Status Of Your Home? Unknown [email or web address] Information not available 11/27/2023 Where Do You Live? SingleLevelHouse [email or web address] Information not available 11/27/2023 Are You Able To Care For Yourself? Yes Information not available 11/27/2023 Are You Blind Or Do Yo Have Difficulty Seeing? No [email or web address] Information not available 11/27/2023 Are You Deaf Or Do You Have Serious Difficulty Hearing? No [email or web address] Information not available 11/27/2023 Live Alone Of With Others? With Others Information not available 11/27/2023 What Was The Date Of Your Most Recent Tobacco Screening? 11/27/2023 [email or web address] Information not available 11/27/2023 What Is Your Current Pack Years? [email or web address] [id number] Information not available 08/23/2022 Do You Have Any Pets? Yes [email or web address] Information not available 11/27/2023 What Is Your Relationship Status? [email or web address] Information not available 11/27/2023 Do You Use Your Seat Belt Or Car Seat Routinely? Yes [email or web address] Information not available 11/27/2023 Do You Have Smoke And Carbon Monoxide Detectors In Your Home? Yes [email or web address] Information not available 11/27/2023 How Much Tobacco Do You Smoke? 1 PPD [id number] Information not available 08/23/2022 How Many Years Have You Smoked Tobacco? 45 [id number] Information not available 08/23/2022 Have You Recently Traveled Abroad? No [id number] Information not available 08/23/2022 Do You Have Difficulty Walking Or Climbing Stairs? No Information not available 11/27/2023 Do You Have Any Dietary Restrictions? No Information not available 11/27/2023 Sex: Unknown Functional Status Question Answer Note LastModified by Organizat ion Details LastModified Time What is your level of alcohol consumption? None [id number] Information not available 08/23/2022 Do you have transportation difficulties? No [email or web address] Information not available 11/27/2023 Are you able to walk independently without assistance or assistive devices? YESWOREST [email or web address] Information not available 11/27/2023 Do you have difficulty doing errands alone? No [email or web address] Information not available 11/27/2023 Are you able to care for yourself independently? Yes [email or web address] Information not available 11/27/2023 Do you have difficulty dressing, bathing, grooming, or toileting? No [email or web address] Information not available 11/27/2023 What is your exercise level? Occasional [email or web address] Information not available 11/27/2023 Mental Status Question Answer Note LastModified by Organization D etails LastModified Time Do you have difficulty concentrating, remembering or making decisions? No [email or web address] Information no t available 11/27/2023 Family History Relationship Description Onset Age of this Age Resolved Age Notes LastModified by Organization Details LastModified Time Father Heart disease [id number] Not available 08/23/2022 14:45:41 Notes:Mother 77 wit h history of CVA and HTN along with CA colon Father 90 HTN and ASHD Two sisters one living one of complications from COPD Medical History Condition Response NERVE DISEASE N BLINDNESS N RHEUMATIC FEVER N KIDNEY STONES N BLADDER PROBLEMS N MRSA N OTHER # 1 N POLIO N LUNG DISEASE/DISORDER N HISTORY OF DRUG ABUSE N RADIATION / CHEMOTHERAPY N COPD N Other # 2 N BLOOD DISEASES N EAR OR HEARING PROBLEMS N MUMPS N SHINGLES N BOWEL PROBLEMS N DEPRESSION (INCLUDING POST ) N STROKE/TIA N ULCERS N BENIGN PROSTATIC HYPERPLASIA N MEASLES N HYPOTENSION N MYOCARDIAL INFARCTION N OBESITY N GERD/NAUSEA N ANEURYSM N URINARY/BLADDER/KIDNEY PROBLEMS N CORONARY ARTERY DISEASE (CAD) Y ADDICTION CONCERNS N ENDOMETRIOSIS N Impotence N USE OF BLOOD THINNERS N SKIN PROBLEMS N GASTROINTESTINAL DISORDER N PERIPHERAL VASCULAR DISEASE N MUSCLE,JOINT OR BONE PROBLEMS N GASTROINTESTINAL BLEEDING N BLOOD CLOTS N ASTHMA N CATARACTS N ERECTILE DYSFUNCTION N VARICOSITIES N GI PROBLEMS N Low Testosterone N INFERTILITY N AIDS/HIV N CHEMOTHERAPY / RADIATION N LIVER DISEASE N MALE HYPOGONADISM N HYPERTENSION N Deficiency N TOURETTE'S N ANXIETY DISORDER Y BLOOD TRANSFUSION N ANEMIA/BLOOD DISORDER N CHRONIC EAR INFECTIONS N BRONCHITIS N TUBERCULOSIS N GLAUCOMA N FOOT PROBLEM N DIVERTICULITIS N CHICKENPOX N SLEEP APNEA N INFECTIOUS DISEASE N HEART ARRHYTHMIA N PROSTATE N INSOMNIA N HIGH CHOLESTEROL / HYPERLIPIDEMIA N HYPERTHYROIDISM N EYE PROBLEMS N EDEMA N CHRONIC PAIN SYNDROME N HYPOTHYROIDISM N CAROTID BLOCKAGE N CONSTIPATION N BACK / NECK PROBLEMS N HAVE YOU BEEN HOSPITALIZED OR SEEN IN [facility] IN THE PAST YEAR ? N ATHEROSCLEROSIS N BREAST PROBLEMS N DIALYSIS N ECZEMA N OSTEOPOROSIS N ARTHRITIS Y NO SIGNIFICANT PAST MEDICAL HISTORY N APPENDICITIS N DIABETES, TYPE N BAD TEETH N ENT N HEARTBURN / REFLUX N AUTISM SPECTRUM DISORDER (ASD) N HEPATITIS / LIVER DISEASE N GOUT N SLEEP DISORDER N ALZHEIMER'S DISEASE N Brain Problems N HERPES N DEMENTIA N HEADACHES/MIGRAINES N SEIZURES/EPILEPSY N VASCULAR DISEASE N PACEMAKER N Blood Disorder N DIZZINESS N HEART DISEASE/HEART PROBLEMS Y KIDNEY DISEASE N MULTIPLE SCLEROSIS N CARDIAC ARRHYTHMIA N CANCER: SPECIFY N ATRIAL FIBRILLATION N Gall Stones N PULMONARY EMBOLISM N AUTOIMMUNE DISEASE N Immunizations Vaccine Type Date Status Note Provider Nam e and Address Organization Details Recorded Time Pneumococcal conjugate PCV20, polysaccharide ZBY104 conjugate, adjuvant, PF 4 completed MAXWELL Lynn Tesfaye [place] [employer] [facility] 12/04/2023 12:18:23 SARS-COV-2 (COVID-19) vaccine, UNSPECIFIED 1 completed Not Available [facility] 08/23/2022 14:53:54 SARS-COV-2 (COVID-19) vaccine, UNSPECIFIED 1 completed Not Available [facility] 08/23/2022 14:53:54 Influenza, split virus, trivalent, preservative 4 completed Not Available [facility] 08/23/2022 14:53:54 Influenza, MDCK, quadrivalent, PF 9 completed Not Available [facility] 08/23/2022 14:53:54 Tdap 9 completed Not Available [facility] 08/23/2022 14:53:54 Influenza, split virus, quadrivalent, PF 0 completed Not Available [facility] 08/23/2022 14:53:54 Past Encounters Encounter ID Performer Location Encounter Start Date Encounter Closed Date Diagnosis/Indication Diagnosis SNOMED-CT Code Diagnosis ICD10 Code Diagnosis IMO Codes Diagnosis Note [id number] Ben Denney MD [facility] [place] [facility] [address] [address] 11/01/2020 00:00:00 11/01/2020 16:44:58 [id number] Ben Denney MD [facility] Internal Med [facility] [address] [address] 05/09/2021 00:00:00 05/09/2021 17:18:54 [id number] Ben Denney MD [facility] [place] [address] [place] [address] y , [place] [address] 10/07/2021 00:00:00 10/07/2021 12:44:25 [id number] Ben Denney MD [facility] [place] [address] [place] [address] y , [place] [address] 11/04/2021 00:00:00 11/04/2021 11:27:01 [id number] Ben Denney MD [facility] [place] [address] [place] [address] [place] [address] 01/17/2022 00:00:00 01/17/2022 16:34:53 [id number] Ben Denney MD [facility] [place] [address] [place] [address] y , [place] [address] 01/24/2022 00:00:00 01/24/2022 16:07:50 [id number] Deion Hilton MD [facility] Ortho [facility] [address] [facility] [address] [place] [address] 02/06/2022 00:00:00 02/06/2022 10:51:11 [id number] Ben Denney MD [facility] Internal Med [place] [address] [facility] [place] [address] 05/23/2022 00:00:00 05/23/2022 15:22:05 [id number] Ben Denney MD [facility] Internal Med [place] [address] [facility] [place] [address] 11/21/2022 14:26:37 11/21/2022 14:52:51 Adult health examination 689887592 Z00.00 Depression screening 171 763485 Z13.31 Coronary arteriosclerosis 20306177 I25.10 Pure hypercholesterolemia 629404626 E78.00 Chronic pain syndrome 37 7079348 G89.4 Essential hypertension 78079182 I10 Disorder of prostate 302 94739 N42.9 Long-term current use of opiate analgesic drug 2816241518 59350 Z79.237 [id number] Ben Denney MD [facility] Internal Med [place] [address] [place] [address] [place] [address] 05/22/2023 14:07:25 05/22/2023 14:42:58 Coronary arteriosclerosis 04128912 I25.10 Essential hypertension 57704558 I10 Pure hypercholesterolemia 886437022 E78.00 [id number] Ben Denney MD [facility] Internal Med [place] [address] [place] [address] [place] [address] 11/27/2023 16:11:43 11/27/2023 17:23:09 Adult health examination 679209170 Z00.00 Screening for disorder 411860782 Z13.9 Screening for cardiovascular system disease 671703265 Z13.6 Coronary arteriosclerosis 82864420 I25.10 Essential hypertension 32391114 I10 Pure hypercholesterolemia 465751076 E78.00 Disorder of prostate 302 74406 N42.9 [id number] Ben Denney MD [facility] Internal Med [place] [address] [facility] [address] [place] [address] 05/27/2024 15:52:44 06/19/2024 16:34:03 Coronary arteriosclerosis 72562739 I25.10 Pure hypercholesterolemia 152223649 E78.00 Chronic pain syndrome 37 1740142 G89.4 Essential hypertension 39193707 I10 [id number] Ben Denney MD [facility] [place] [facility] [address] [address] 10/28/2024 14:34:41 10/28/2024 14:59:55 Coronary arteriosclerosis 15181149 I25.10 Essential hypertension 67952740 I10 Pure hypercholesterolemia 058028213 E78.00 Hyperglycemia 37630693 R 73.9 Chronic pain syndrome 37 6232905 G89.4 Leukocytosis 518900051 D 72.829 337654 Long-term current use of opiate analgesic drug 2077136980 38319 Z79.891 Health Concerns Section Related Observation LastModified by Organization Detai ls LastModified Time None Recorded Concern Status LastModified by Organization Details LastModified Time None Recorded Advance Directives Directive N: Payers Insurance Date Sequence Insurance Name Policy Number Policy Andersen Covered Member ID Andersen Member ID Guarantor Name 05/27/2024 1 [employer] (POS II) [id number] Josie Villarreal [id number] Josie Villarreal 10/27/2024 1 [employer] (MEDICARE REPLACEMEN T/ADVANTAG E - PPO) [id number] Josie Villarreal [id number] Josie Villarreal Notes Date Note Type Note Provider Name and Address Organization Details Recorded Time 11/22/19 23 text/htm l Patient Name: Josie VillarrealDate Of Service: Sunday ( 11.21.2022 ): 1960 Age: 62 Vital Signs:Blood Pressure: Sitting Rt. Arm 136/80Pulse: Sitting 92 /min and RegularRespirations: 12Height 76.5 in or 1.9 mWeight 220 lb or 99.8 kgBMI 26.4Temperature: 98 F or 36.7 CPulse Oximetry: 95 % at rest on no oxygen Chief Complaint: Addressed in HPI Problems or conditions discussed in the HPI were the only ones reviewed during the encounter.Only social and family history addressed in the HPI were reviewed during this encounter. Attendant(s): None Constitutional and Systemic Symptoms: none Medication Reconciliation: from medication list. 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 Chronic pain management for chronic lumbar Since last examination somewhat improved Interval Testing: noneHas tried NSAIDS partial relief requiring additional medication. Pain Description: constant, exacerbated by activity and interferes with enjoyment and ability to perform daily tasks. Severity: 4 ]. Currently seeing or has seen in the past a Mastercam Programmer: NoPain - Enjoyment of Life - General Activity ScalePain on Average: 4Enjoyment of Live: 5General Activity: 4Score: 4Currently regimen consists of Winston as prescribed with no evidence of abuse or self prescribing. Current Average Morphine Milligram Approximate Equivalent: 22 mg approximated if taking full dosage daily. Recommend: NABenzodiazepines or other hypnotics: noAlternative pain management modalities (acupuncture - behavior therapy- additional PT - SNRIs) have been discussed and have either been tried in the past or not acceptable alternatives to patient or not available in our location.Will kept medications the same.Urine Testing: will be performed and patient instructed that failure of testing within a 24 hour period from time of order may result in termination of medication.Controlled substance database yes and no discrepancies or multiple prescribers noted.Patient reports condition is stable and is able to function with the medication. Denies any misuse or adverse effects.TREATMENT OBJECTIVE: Enhance ability to manage pain independently, improved function and sustain quality of life. Recommendations or alternative therapies and lifestyle changes are discussed on each visit. Has shown improvement inf functionality. Has been educated on the side effects,risks and any black box warnings. Has verbalized the dangers of some of the medications regarding driving and cooperating heavy machinery and have advised against this. . In for a well patient check up. Last well patient evaluation was approximately one year. No interval complaints of any new major medical problems. No hx of any chest pain, shortness of breath, nausea, vomiting, diarrhea or constitutional symptoms.PSA orderedColonoscopy or Cologuard: not dueImmunizations Up To Date or refuses to takeNo Significant Change In Family HxFall Risk normalDepression Score: 1Hearing normalVisual normalReviewed Smoking and Drug HistoryReviewed Immunization HistoryInstructed on importance of weight on diabetes, heart and other diseases aggravated by obesity.Instructed on importance of weight on diabetes, heart and other diseases aggravated by obesity. #2. Coronary Artery Disease: There has been no change in frequency - duration - intensity in frequency, duration or intensity of chest pain. Other Complaints: none The frequency of anginal attacks is none at all. Additional Symptoms: none Therapy reviewed regarding cardiovascular management includes Aspirin, Lipitor, Metoprolol Tartrate and Zetia #3. Essential Hypertension: Stage: Stage I Interval Neurological Complaints no headaches. No shortness of breath, orthopnea or cardiovascular symptoms. No other symptoms related to end organ damage. Pressure has been under fair control. Currently normal. No other end organ symptoms or findings. Therapy reviewed regarding management of hypertension and includes salt restriction and Metoprolol Tartrate. #4. Type II Hypercholesterolaemia: Currently taking medication and tolerating well. No interval complaints of any muscle pain or arthralgia. No significant liver changes with medications. Last lipid panel: fair control. Therapy reviewed regarding treatment of cholesterol management and include diet and Metoprolol Tartrate.Medication List Reviewed and Reconciled 11/21/2022spirin 81 MG One Daily For Vascular ProphylaxisLipitor 80 MG (TABLET - ORAL) One Daily For CholesterolNorco 325 MG-7.5 MG (TABLET - ORAL) One Three Times DailyZetia 10 MG (TABLET - ORAL) One DailyMetoprolol Tartrate 25 MG (TABLET - ORAL) 1/2 Tab BidVaccination and Eczvffuflmkm4721-60 Covid Hsbpzsv4622-54 Etntnhqyb7965-45 TdapSurgical HistoryCoronary Stent, Lap Ileocecectomy, Drug Eluting Stent Ramus, Right ulnar nerve implant, Lap CholecystectomyPreventative Testing Confirmed by Our Rdmpvpz3811/17/2021 ALBUMIN 4.2 G/DL10/13/2021 LDCT COLONOSCOPY ( 5 YEARS ) 7107/12/2020 PSA 0.50 NG/ML05/16/2016 HAIC107/08/2009 PSASocial HistorySmoked one pack daily for 20 yearsDrinks sociallyWorks at steelFamily HistoryMother 77 with history of CVA and HTN along with CA colonFather 88 living HTN and ASHDTwo sisters one living one of complications from COPD Ben Denney MD [address] [facility], [facility] [address], [place], [address], [facility] 11/21/2022 14:49:30 05/22/20 23 text/htm l Patient Name: Josie Mcallister Of Service: Sunday ( 05.22.2023 ): 1960 Age: 63 Vital Signs:Blood Pressure: Sitting Rt. Arm 138/80Pulse: Sitting 84 /min and RegularRespiratory Rate: 12Height 76.5 in or 1.9 mWeight 220 lb or 99.8 kgBMI 26.4Temperature: 97 F or 36.1 CPulse Oximetry: 97 % at rest on no oxygen Chief Complaint: Addressed in HPI Problems or conditions discussed in the HPI were the only ones reviewed during the encounter.Only social and family history addressed in the HPI were reviewed during this encounter. Attendant(s): NoneConstitutional and Systemic Symptoms:none Medication Reconciliation: from medication list. 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 Microvascular disease noted. Left Phthisis bulbi with optic nerve tcwcljq4212/28/2022: Low-dose CT scan of the chest demonstrates a 6 mm noncalcified nodule left lower lobe. On review of previous dose CT scan report from 10/13/2021 this was present and is not showing any change in size. Repeat the low-dose CT scan approximately one year. History of Present Illness #1. Coronary Artery Disease: There has been no change in frequency - duration - intensity in frequency, duration or intensity of chest pain. Other Complaints: none The frequency of anginal attacks is none at all. Additional Symptoms: none Therapy reviewed regarding cardiovascular management includes Aspirin, Lipitor, Metoprolol Tartrate and Zetia #2. Essential Hypertension: Stage: Stage I Interval Neurological Complaints no headaches, weakness and visual changes. No shortness of breath, orthopnea or cardiovascular symptoms. No other symptoms related to end organ damage. Pressure has been under fair control. Currently normal. No other end organ symptoms or findings. Therapy reviewed regarding management of hypertension and includes salt restriction and Metoprolol Tartrate. #3. Type II Hypercholesterolaemia: Currently taking medication and tolerating well. No interval complaints of any muscle pain or arthralgia. No significant liver changes with medications. Last lipid panel: fair control. Therapy reviewed regarding treatment of cholesterol management and include diet and Lipitor.Medication List Reviewed and Reconciled 05/22/2023spirin 81 MG One Daily For Vascular ProphylaxisLipitor 80 MG (TABLET - ORAL) One Daily For CholesterolNorco 325 MG-7.5 MG (TABLET - ORAL) One Three Times DailyZetia 10 MG (TABLET - ORAL) One DailyMetoprolol Tartrate 25 MG (TABLET - ORAL) 1/2 Tab BidVaccination and Zruxligpeehi3479-99 Covid Bewnbep2473-39 Jtlmbislp3835-25 TdapSurgical HistoryCoronary Stent, Lap Ileocecectomy, Drug Eluting Stent Ramus, Right ulnar nerve implant, Lap CholecystectomyPreventative Testing Confirmed by Our Cvwzmxg7801/10/2023 HAIC 5.2 % OF TOTAL HGB N012/28/2022 LDCT /10/2022 ALBUMIN 4.7 G/DL N011/27/2022 PSA 0.30 NG/ML N007/25/2021 COLONOSCOPY ( 5 YEARS ) 07/25/2026Social HistorySmoked one pack daily for 20 yearsDrinks sociallyWorks at steelFamily HistoryMother 77 with history of CVA and HTN along with CA colonFather 88 living HTN and ASHDTwo sisters one living one of complications from COPD Ben Denney MD [address] [facility], [facility] [address], [place], [address], [facility] 05/22/2023 14:38:54 11/27/19 24 text/htm l Patient Name: Josie Mcallister Of Service: Sunday ( 11.27.2023 ): 1960 Age: 63 Vital Signs:Blood Pressure: Sitting Rt. Arm 138/80Pulse: Sitting 92 /min and RegularRespiratory Rate: 12Height 76.5 in or 1.9 mWeight 220 lb or 99.8 kgBMI 26.4Temperature: 97 F or 36.1 CPulse Oximetry: 96 % at rest on no oxygen Chief Complaint: Addressed in HPI Problems or conditions discussed in the HPI were the only ones reviewed during the encounter.Only social and family history addressed in the HPI were reviewed during this encounter. Attendant(s): NoneConstitutional and Systemic Symptoms:none Medication Reconciliation: from medication list. 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 Microvascular disease noted. 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 On review of previous dose CT scan report from 10/13/2021 this was present and is not showing any change in size. Repeat the low-dose CT scan approximately one year. History of Present Illness Reviewed the findings of the preventative health visit. Addressed all areas with the patient, patient's family or caregivers. Preventative examinations and testing immunizations - vaccinations, colonic neoplasm screening, PSA and AAA Screening all reviewed and ordered where patient was amenable to the recommendations. Cognitive function was normal. Depression addressed and where necessary medications were adjusted or instituted. End of life and living will briefly discussed with patient and where these can be filled out and legally executed. Other blood and imaging studies were ordered if considered necessary. Other recommendations may be found in the encounter note. #1. Coronary Artery Disease: There has been no change in frequency - duration - intensity in frequency, duration or intensity of chest pain. Other Complaints: none The frequency of anginal attacks is none at all. Additional Symptoms: none Therapy reviewed regarding cardiovascular management includes Aspirin, Lipitor, Metoprolol Tartrate and Zetia #2. Essential Hypertension: Stage: Stage I Interval Neurological Complaints no headaches, dizziness, weakness, visual changes, ataxia, aphasia and apraxia. No shortness of breath, orthopnea or cardiovascular symptoms. No other symptoms related to end organ damage. Pressure has been under excellent control. Currently normal. No other end organ symptoms or findings. Therapy reviewed regarding management of hypertension and includes salt restriction and Metoprolol Tartrate. #3. Type II Hypercholesterolaemia: Currently taking medication and tolerating well. No interval complaints of any muscle pain or arthralgia. No significant liver changes with medications. Last lipid panel: fair control. Therapy reviewed regarding treatment of cholesterol management and include diet and Lipitor and Zetia. #4. Colon polyps: Hx of colon polyps. No interval complaints of any bleeding or change in bowel habits. Last colonoscopy was two years ago. Active Medication ListAspirin 81 MG One Daily For Vascular ProphylaxisLipitor 80 MG (TABLET - ORAL) One Daily For CholesterolNorco 325 MG-7.5 MG (TABLET - ORAL) One Three Times DailyZetia 10 MG (TABLET - ORAL) One DailyMetoprolol Tartrate 25 MG (TABLET - ORAL) 1/2 Tab Bid Vaccination and Vthnhktgebfy3105-86 Prevnar Covid Imrztwd5347-50 Mmojookcv0420-47 Tdap Surgical Llgkaas8342-49 Coronary Qkzin2095-35 Lap Uvuajgnldotbc3845-93 Drug Eluting Stent Awfts8149-72 Right ulnar nerve asdckom7031-60 Lap Cholecystectomy Preventative Wbsvswp8201/10/2023 HAIC 5.2 % OF TOTAL HGB N012/28/2022 LDCT /10/2022 ALBUMIN 4.7 G/DL 11/27/2022 PSA 0.30 NG/ML N007/25/2021 COLONOSCOPY ( 5 YEARS ) 07/25/2026 Social HistorySmoked one pack daily for 20 yearsDrinks sociallyWorks at [employer] Family HistoryMother 77 with history of CVA and HTN along with CA colonFather 90 HTN and ASHDTwo sisters one living one of complications from COPD TEST RESULT RANGE UNITSHEMOGLOBIN A1C Date: 01/10/2023HEMOGLOBIN A1C 5.2 <5.7 % OF TOTAL HGBCBC (INCLUDES DIFF/PLT) Date: 11/27/2022WHITE BLOOD CELL COUNT 12.7 3.8-10.8 THOUSAND/ULHEMOGLOBIN 17.1 13.2-17.1 G/DLHEMATOCRIT 51.6 38.5-50.0 %PLATELET COUNT 406 140-400 THOUSAND/ULCOMPREHENSIVE METABOLIC PANEL Date: 11/27/2022SODIUM 141 135-146 MMOL/LPOTASSIUM 4.9 3.5-5.3 MMOL/LGLUCOSE 123 65-99 MG/DLUREA NITROGEN (BUN) 14 7-25 MG/DLCREATININE 1.08 0.70-1.35 MG/DLEGFR 77 > OR = 60 ML/MIN/1.85W6SHZKHXFOA, TOTAL 0.4 0.2-1.2 MG/DLALKALINE PHOSPHATASE 81 35-144 U/LAST 13 10-35 U/LALT 11 9-46 U/LLIPID PANEL, STANDARD Date: 3CHOLESTEROL, TOTAL 330 <200 MG/DLHDL CHOLESTEROL 38 > OR = 40 MG/DLTRIGLYCERIDES 494 <150 MG/DLLDL-CHOLESTEROL MG/DL (CALC)PSA, TOTAL Date: 3PSA, TOTAL 0.30 < OR = 4.00 NG/MLT4, FREE Date: 11/27/2022T4, FREE 1.2 0.8-1.8 NG/DLTSH Date: 11/27/2022TSH 0.48 0.40-4.50 MIU/L Ben Denney MD [address] [facility], [facility] [address], [place], [address], [facility] 11/27/2023 17:13:56 05/27/20 24 text/htm l Patient Name: Josie Mcallister Of Service: Sunday ( 05.27.2024 ): 1960 Age: 64 There has been approximately a 5 lb weight gain since 11/27/2023. This represents approximately a 2.3% change in weight. Weight change attributable to lifestyle changes. Vital Signs:Blood Pressure: Sitting Rt. Arm 122/82Pulse: Sitting 74 /min and RegularRespiratory Rate: 16Height 76.5 in or 1.9 mWeight 225 lb or 102.1 kgBMI 27.0Temperature: 97 F or 36.1 CPulse Oximetry: 96 % at rest on no oxygen Chief Complaint: Addressed in HPI Problems or conditions discussed in the HPI were the only ones reviewed during the encounter.Only social and family history addressed in the HPI were reviewed during this encounter. Attendant(s): NoneConstitutional and Systemic Symptoms:none Medication Reconciliation: from medication list. Hiymutpwadu51/06/2023: Low-dose CT scan of the chest demonstrates a 6 mm noncalcified nodule left lower lobe. On review of previous dose CT scan report from 10/13/2021 this was present and is not showing any change in size. Repeat the low-dose CT scan approximately one year. History of Present Illness #1. Coronary Artery Disease: There has been no change in frequency - duration - intensity in frequency, duration or intensity of chest pain. Other Complaints: none The frequency of anginal attacks is none at all. Additional Symptoms: none Therapy reviewed regarding cardiovascular management includes Metoprolol Tartrate #2. Essential Hypertension: Stage: Stage I Interval Neurological Complaints no headaches, dizziness, weakness, visual changes, ataxia, aphasia and apraxia. No shortness of breath, orthopnea or cardiovascular symptoms. No other symptoms related to end organ damage. Pressure has been under excellent control. Currently normal. No other end organ symptoms or findings. Therapy reviewed regarding management of hypertension and includes salt restriction and Metoprolol Tartrate. #3. Type II Hypercholesterolaemia: Currently taking medication and tolerating well. No interval complaints of any muscle pain or arthralgia. No significant liver changes with medications. Last lipid panel: fair control. Therapy reviewed regarding treatment of cholesterol management and include diet and Lipitor. #4. Chronic pain management for chronic lumbar and knees Since last examination no significant change since last examination Interval Testing: noneHas tried NSAIDS partial relief requiring additional medication. Pain Description: constant, exacerbated by activity and interferes with enjoyment and ability to perform activities of daily living. Currently seeing or has seen in the past a Mastercam Programmer: No .Pain - Enjoyment of Life - General Activity ScalePain on Average: 5Enjoyment of Live: 4General Activity: 4Enjoyment of Life - General Activity Scale: 4Currently regimen consists of Winston as prescribed with no evidence of abuse or self prescribing. Current Average Morphine Milligram Approximate Equivalent: 22 mg approximated if taking full dosage daily. Recommend: NA.Benzodiazepines or other hypnotics: no.Alternative pain management modalities (acupuncture - behavior therapy- additional PT - SNRIs) have been discussed and have either been tried in the past or not acceptable alternatives to patient or not available in our location.Will kept medications the same.Urine Testing: not indicated and this time.Controlled substance database yes and no discrepancies or multiple prescribers noted. Pill counts when available have been acceptable. No other signs of any abuse.Patient reports condition is stable and is able to function with the medication. Denies any misuse or adverse effects.TREATMENT OBJECTIVE: Enhance ability to manage pain independently, improved function and sustain quality of life. Recommendations or alternative therapies and lifestyle changes are discussed on each visit. Has shown improvement inf functionality. Has been educated on the side effects,risks and any black box warnings. Has verbalized the dangers of some of the medications regarding driving and cooperating heavy machinery and have advised against this. Active Medication ListAspirin 81 MG One Daily For Vascular ProphylaxisLipitor 80 MG (TABLET - ORAL) One Daily For CholesterolNorco 325 MG-7.5 MG (TABLET - ORAL) One Three Times DailyZetia 10 MG (TABLET - ORAL) One DailyMetoprolol Tartrate 25 MG (TABLET - ORAL) 1/2 Tab Bid Vaccination and Immunization(X) 2020-04 INFLUENZA( ) 2018-06 TDAP(X) 2020-08 COVID MODERNA( ) 2023-11 PREVNAR 20 Surgical Touwetq5035-22 Coronary Wwlth4082-18 Lap Dikdmscfqolls3798-68 Drug Eluting Stent Kcrtv8209-88 Right ulnar nerve khuhjxg2945-11 Lap Cholecystectomy Preventative Testing( ) 12/19/2023 Albumin 4.4 G/DL N( ) 12/19/2023 PSA 0.3 NG/ML 12/18/2025( ) 01/10/2023 HAIC 5.2 % OF TOTAL HGB N(X) 12/28/2022 LDCT 12/29/2023( ) 07/25/2021 Colonoscopy ( 5 Years ) 07/25/2026 Social HistorySmoked one pack daily for 20 yearsDrinks sociallyWorks at [employer] Family HistoryMother 77 with history of CVA and HTN along with CA colonFather 88 HTN and ASHDTwo sisters one living one of complications from COPD Ben Denney MD [address] [facility] [address], [place], [address], [place] - [facility] 05/27/2024 16:28:26 10/29/19 25 text/htm l Patient Name: Josie Mcallister Of Service: Sunday ( 10.28.2024 ): 1960 Age: 64 Vital Signs:Blood Pressure: Sitting Rt. Arm 120/72Pulse: Sitting 84 /min and RegularRespiratory Rate: 16Height 76.5 in or 1.9 mWeight 224 lb or 101.6 kgBMI 26.9Temperature: 97 F or 36.1 CPulse Oximetry: 94 % at rest on no oxygen Chief Complaint: Addressed in HPI Problems or conditions discussed in the HPI were the only ones reviewed during the encounter.Only social and family history addressed in the HPI were reviewed during this encounter. Attendant(s): NoneConstitutional and Systemic Symptoms:none Medication Reconciliation: from medication list. Xwbsputnenw58/06/2023: Low-dose CT scan of the chest demonstrates a 6 mm noncalcified nodule left lower lobe. On review of previous dose CT scan report from 10/13/2021 this was present and is not showing any change in size. Repeat the low-dose CT scan approximately one year. History of Present Illness #1. Coronary Artery Disease: There has been no change in frequency - duration - intensity in frequency, duration or intensity of chest pain. Other Complaints: none The frequency of anginal attacks is none at all. Additional Symptoms: none Therapy reviewed regarding cardiovascular management includes Aspirin, Lipitor, Metoprolol Tartrate and Zetia #2. Essential Hypertension: Stage: Stage I Interval Neurological Complaints no headaches, dizziness, weakness, visual changes, ataxia, aphasia and apraxia. No shortness of breath, orthopnea or cardiovascular symptoms. No other symptoms related to end organ damage. Pressure has been under excellent control. Currently normal. No other end organ symptoms or findings. Therapy reviewed regarding management of hypertension and includes salt restriction and Metoprolol Tartrate. #3. Type II Hypercholesterolaemia: Currently not taking medication. Some interval complaints of any muscle pain or arthralgia. No significant liver changes with medications. Last lipid panel: excellent control. Therapy reviewed regarding treatment of cholesterol management and include diet and Lipitor and Zetia. #4. Glucose Intolerance: Hx of glucose intolerance controlled with diet. No interval complaints of any polyuria, polyphagia or polydipsia. No nocturia. There has been no weight loss or other constitutional symptoms. Medications reviewed regarding diabetic management and include diet only. Last HAIC: controlled #5. Chronic pain management for chronic thoracic, lumbar, knees and hips Since last examination somewhat improved Interval Testing: noneHas tried NSAIDS partial relief requiring additional medication. Pain Description: constant, exacerbated by activity and interferes with enjoyment and ability to perform activities of daily living. Currently seeing or has seen in the past a Mastercam Programmer: No .Pain - Enjoyment of Life - General Activity ScalePain on Average: 5Enjoyment of Live: 4General Activity: 5Enjoyment of Life - General Activity Scale: 5Currently regimen consists of Winston as prescribed with no evidence of abuse or self prescribing. Current Average Morphine Milligram Approximate Equivalent: 22 mg approximated if taking full dosage daily. Recommend: NA.Benzodiazepines or other hypnotics: no.Alternative pain management modalities (acupuncture - behavior therapy- additional PT - SNRIs) have been discussed and have either been tried in the past or not acceptable alternatives to patient or not available in our location. Once again address the possibility that these medications may cause some cognitive impairment at times. Has noticed no cognitive impairment. Instructed to let us know if any of the conditions arise I will need to consider reducing or stopping certain medication.Will kept medications the same.Urine Testing: will be performed and patient instructed that failure of testing within a 24 hour period from time of order may result in termination of medication.Controlled substance database yes and no discrepancies or multiple prescribers noted. Pill counts when available have been acceptable. No other signs of any abuse.Patient reports condition is stable and is able to function with the medication. Denies any misuse or adverse effects.TREATMENT OBJECTIVE: Enhance ability to manage pain independently, improved function and sustain quality of life. Recommendations or alternative therapies and lifestyle changes are discussed on each visit. Has shown improvement inf functionality. Has been educated on the side effects,risks and any black box warnings. Has verbalized the dangers of some of the medications regarding driving and cooperating heavy machinery and have advised against this.#6. Leukocytosis etiology which obscure. Will recheck blood work to see if this persist if so may need to consider hematological referral Active Medication ListAspirin 81 MG One Daily For Vascular ProphylaxisLipitor 80 MG (TABLET - ORAL) One Daily For CholesterolNorco 325 MG-7.5 MG (TABLET - ORAL) One Three Times DailyZetia 10 MG (TABLET - ORAL) One DailyMetoprolol Tartrate 25 MG (TABLET - ORAL) 1/2 Tab Bid Vaccination and Immunization(X) 2020-04 INFLUENZA( ) 2018-06 TDAP(X) 2020- COVID MODERNA( ) 2023- PREVNAR 20 Surgical [id number] Coronary [id number] Lap [id number] Drug Eluting Stent [id number] Right ulnar nerve [id number] Lap Cholecystectomy Preventative Testing( ) 12/19/2023 Albumin 4.4 G/DL N( ) 12/19/2023 PSA 0.3 NG/ML 12/18/2025( ) 01/10/2023 HAIC 5.2 % OF TOTAL HGB N(X) 12/28/2022 LDCT 12/29/2023( ) 07/25/2021 Colonoscopy ( 5 Years ) 07/25/2026 Social HistorySmoked one pack daily for 20 yearsDrinks sociallyWorks at [employer] Family HistoryMother 77 with history of CVA and HTN along with CA colonFather 90 HTN and ASHDTwo sisters one living one of complications from COPD TEST RESULT RANGE UNITSCBC (INCLUDES DIFF/PLT) Date: 04/17/2024WHITE BLOOD CELL COUNT 15.5 3.8-10.8 THOUSAND/ULHEMOGLOBIN 15.9 13.2-17.1 G/DLHEMATOCRIT 46.5 38.5-50.0 %PLATELET COUNT 424 140-400 THOUSAND/ULCBC (INCLUDES DIFF/PLT) Date: 03/17/2024 Ben Denney MD [address] [facility] [facility] [address], [place], [address], [facility] Shuame 10/28/2024 14:55:00
--- OUTSIDE RECORDS SUMMARY | 2025-04-07 12:54 | XMS_ITS | Clinical Summary ---
Author Organization [facility] Elizabeth elizabeth Gabe Address [address] [place] [address] Care Team Providers Care Farm Equipment Operator Name Role Phone Shaheen Denney MD Primary Care Provider [phone] Allergies No known active allergies Medications atorvastatin (LIPITOR) 80 mg tablet Take 80 mg by mouth daily. 11/04/2024 Active HYDROcodone-acet aminophen (NORCO) 7.5-325 mg Tablet Take 1 Tablet by mouth 3 times daily. 11/12/2024 Active aspirin (ECOTRIN EC) 81 mg Tablet, Delayed Release (E.C.) Take 81 mg by mouth daily. Active Active Problems No known active problems Encounters Date Type Department Care Team Description 04/07/2025 10:30 AM CDT Office Visit [facility] Oncology and Hematology - [place] [address] [address] Graham Kimball MD Leukocytosis, unspecified type (Primary Dx) from Last 3 Months Family History Medical History Relation Name Comments No Known Problems Child 1 No Known Problems Child 2 Diabetes Father Heart Disease Father Liver Cancer Mother Cancer - Other Sister Relation Name Status Comments Child 1 Alive Child 2 Alive Father Mother Sister Alive Social History Tobacco Use Types Packs/Day Years [...] on file Sexual Orientation Not on file Last Filed Vital Signs Vital Sign Reading [...] Mass Index 27.12 04/07/2025 10:11 AM CDT Plan of Treatment Upcoming Encounters Date Type Department Care Team (Late st Contact Info) Description 04/21/2025 4:30 PM CDT Telephone Check Up [facility] [address] [facility] [address] [place] [address] Graham Kimball MD [address] [place] [address] Health Maintenance Due Date Last Done Comments COLORECTAL SCREENING 2003 Colorectal Cancer Screening 2003 FIT-DNA Q 3 years 2003 FIT/FOBT Q 1 year 2003 Flex Sig/CT Colonography Q 5 years 2003 ZOSTER VACCINE (1 of 2) 2008 Medicare Advantage ([place]) Prev entative Visit/Annual Wellness Visit 06/25/2024 11/27/2023, 11/21/2022 INFLUENZA VACCINE (#1) 2025 0, 06/27/2018, 04/22/2014 DTAP/TDAP/TD VACCINES (3 - T d or Tdap) 01/16/2032 01/15/2022, 06/27/2018 RSV VACCINE (60+ or ) (1 - 1-dose 75+ series) 2033 PNEUMOCOCCAL VACCINE 50+ YEARS Completed 12/04/2023 Insurance [employer] PPO MCR Care Teams Farm Equipment Operator Relationship Specialty Start Date End Date Shaheen Denney MD [address] [place] [address] [place] [address] PCP - General Internal Medicine 12/03/24
== END 2025-04-07 10:55 | disposition home or self-care (01) ==
PROVIDERS: PCP Internal Medicine; Visit Provider Internal Medicine Hematology & Oncology
DX: D72.829 Elevated white blood cell count, unspecified (principal)
CPT/HCPCS: 36415; 80053; 81206; 81207; 85025; 85652; 86140; 88184

== ENCOUNTER 2025-05-19 12:43 | Outpatient (CLI) | payer MEDICARE, SELFPAY ==
--- NOTE | ~2025-05-19 | CT_ITS ---
EXAMINATION:CT lung screening DATE: 05/19/2025 13:02 INDICATION: Current smoker. TECHNIQUE: Computed tomography (CT) of the chest was performed without intravenous contrast. Automated exposure control and iterative reconstruction technique were employed. The dose-length product (DLP) was 149.35 mGy-cm. COMPARISON: Prior exam dated 12/28/2022. FINDINGS: Mild centrilobular emphysema lungs. Stable benign calcified granulomatous nodule in the right lung. Stable calcified lymph nodes of right hilum. No new or additional pulmonary lesions. Severe coronary artery calcification of the left main, anterior descending and circumflex coronary arteries. IMPRESSION: 1. Mild emphysematous lungs. Stable benign granulomatous nodule of right lung and right hilum. Continue annual screening. Lung RADS category 2 2. Severe multivessel coronary artery calcifications. Reviewed, dictated and finalized at location [employer]. [employer] IMPRESSION: 1. Mild emphysematous lungs. Stable benign granulomatous nodule of right lung a nd right hilum. Continue annual screening. Lung RADS category 2 2. Severe multivessel coronary artery calcifications.
== END 2025-05-19 12:44 | disposition home or self-care (01) ==
LOC: MICIMG 12:44
PROVIDERS: PCP Internal Medicine; Visit Provider Internal Medicine
DX: Z12.2 Encounter for screening for malignant neoplasm of respiratory organs (principal); J43.9 Emphysema, unspecified; R91.1 Solitary pulmonary nodule; I25.10 Atherosclerotic heart disease of native coronary artery without angina pectoris; Z87.891 Personal history of nicotine dependence
CPT/HCPCS: 71271